=== PATIENT | male | born 1940 | race Caucasian/White ===

== ENCOUNTER 2018-09-14 18:54 | Inpatient (IN) ==
[2018-09-14 20:01] LABS: BASO# 0.07 X1000 (0.0-0.2); BASO% 0.5 % (0.0-0.8); EOS% 0.7 % (0.0-10.0); HEMATOCRIT 28.8 % (42.0-52.0); HEMOGLOBIN 9.7 g/dL (14.0-18.0); IMM GRAN# 0.27 X1000 (0.0-0.04); IMM GRAN% 1.9 % (0.0-0.5); LYMPH# 1.15 X1000 (1.2-3.4); MCH 30.8 PG (27-31); MCHC 33.7 g/dL (33-37); MCV 91.4 FL (81-99); MONO# 1.25 X1000 (0.11-0.59); MONO% 8.7 % (1.7-9.3); MPV 9.7 FL (7.4-10.4); NEUT# 11.52 X1000 (1.4-6.5); NEUT% 80.2 % (42.2-75.2); PLT 232 X1000 (130-400); RBC 3.15 XMIL (4.7-6.1); RDW 13.1 % (11.5-14.5); WBC 14.36 X1000 (4.8-10.8)
[2018-09-14] MEDS: HUMULIN R (PARKWAY) IV ONE ×3 (20:15→21:10)
[2018-09-14 20:33] LABS: INR 0.97; PROTIME 13.4 Seconds (11.0-16.0)
[2018-09-14 20:35] LABS: ALBUMIN 3.4 g/dL (3.5-5.0); CALCIUM 8.3 mg/dL (8.8-10.2); CREATININE 3.4 mg/dL (0.7-1.2); TOTAL BILIRUBIN 0.3 mg/dL (0.20-1.00); TOTAL PROTEIN 6.4 g/dL (6.3-8.3)
[2018-09-14 20:36] LABS: POTASSIUM 7.1 mmol/L (3.5-5.1)
[2018-09-14] MEDS ORDERED: SODIUM BICARBONATE 8.4% IV PUSH ONE (20:56)
[2018-09-14] MEDS ORDERED: ALBUTEROL NEB INH ONE (20:58)
--- NOTE | 2018-09-14 22:15 | Diag Imaging Result Doc PS360 ---
EXAM: CT ABDOMEN/PELVIS W/O CONTRAST HISTORY: abdominal pain TECHNIQUE: CT abdomen and pelvis without contrast COMPARISON: 03/03/2014 FINDINGS: The gallbladder is contracted. Questionable tiny stones within it. Normal noncontrasted liver. Spleen is small containing scattered granuloma. Normal pancreas and adrenal glands. There is bilateral renal cortical thinning with scattered renal cysts. Hyperdense right upper pole renal lesions present prior study. Calcified nodule along the medial left kidney is unchanged. No renal stones. No hydronephrosis. No aortic aneurysm. Moderate atherosclerosis. Normal appendix. No abscess. No bowel obstruction. There are scattered colonic diverticula. No ascites. The urinary bladder is moderately distended and is normal. Normal prostate. IMPRESSION: 1.Scattered renal cysts with bilateral cortical thinning and scarring. Hyperdense right renal lesion may represent a hemorrhagic cyst. 2.Contracted gallbladder which may contain several tiny stones 3.Atherosclerosis 4.Colonic diverticulosis This exam was performed using automated exposure control, adjustment of mA or kV according to patient size, and/or use of iterative reconstruction technique. Electronically signed by Homer Giles 09/14/2018 10:12 PM
[2018-09-14] MEDS ORDERED: KAYEXALATE PO ONE (22:17)
--- NOTE | 2018-09-14 22:46 | PROVIDER DOCUMENTATION ---
This chart was entered by Kesha Maki Scribe, acting as scribe for Magdy Judd MD. HPI-Abdominal Pain/GI Problem - General Chief Complaint: Rectal Bleeding Stated Complaint: BLEEDING Time Seen by Provider: 09/14/18 19:36 Source: patient Allergies/Adverse Reactions: Patient Allergies Allergy/AdvReac Type Severity Reaction Status Date / Time No Known Allergies Allergy Verified 12/31/13 22:27 Home Medications: Home Medication List Medication Instructions Recorded Confirmed Last Taken Type Aspirin 325 mg PO DAILY 12/18/13 03/02/14 03/02/14 07:30 History Carvedilol 12.5 mg PO BID 12/18/13 03/02/14 03/02/14 07:30 History Cyanocobalamin/FA/Pyridoxine 1 each PO BID 12/18/13 03/02/14 03/02/14 07:30 History [Foltx] Diltiazem HCl [Diltiazem 24Hr Cd] 180 mg PO BID 12/18/13 03/02/14 03/02/14 07:30 History Clonidine [Catapres] 0.1 mg PO BID 12/31/13 03/02/14 03/02/14 07:30 History Amlodipine Besylate 10 mg PO DAILY 09/14/18 09/14/18 Unknown History Insulin Lispro [Humalog] 150 unit PERCUTANEOUS DAILY 09/14/18 09/14/18 Unknown History - History of Present Illness-ABD Nature of Presenting Problems: pt is a 77 yr old male with history of chronic renal insufficency,diabetes, and GI complaints, currently being evaluated by local GI doctor, who presents with complaint of rectal bleeding pt reports red blood mixed with stool, pt denies nausea, vomiting or diarrhea, no rectal pain Pain Radiation: reports: no radiation Quality of Pain: reports: none Onset/Duration: reports: this afternoon (1400) Timing: reports: still present Activities at Onset: reports: other (bowel movement) Exposure to sick contacts?: No Modifying Factors: improves with: nothing Associated Symptoms: reports: fatigue, weakness. denies: chest pain, constipation, diarrhea, nausea, vomiting Last BM: this afternoon Dark Stools Present?: reports: tarry, bright red blood Rectal Bleeding: reports: blood mixed with stool Rectal Pain: reports: none Emesis Description: reports: none Bruising or Bleeding Gums?: No Similar Symptoms Previously?: No Recently seen or treated by another doctor?: No Review of Systems - Adult - REVIEW OF SYSTEMS - ADULT Constitutional: reports: fatique. denies: fever Eyes: reports: no symptoms reported Ears, Nose, Mouth & Throat: reports: no symptoms reported Cardiovascular: denies: chest pain, palpitations, syncope Respiratory: denies: cough, dyspnea on exertion, shortness of breath Gastrointestinal: reports: poor appetite, rectal bleeding. denies: abdominal pain, diarrhea, nausea, vomiting Genitourinary: denies: dysuria, frequency, flank pain Musculoskeletal: denies: back pain, neck pain Integumentary: reports: no symptoms reported Neurological: denies: dizziness/vertigo, headache/migraines Psychiatric: reports: no symptoms reported Endocrine: reports: no symptoms reported Hematologic/Lymphatic: reports: no symptoms reported Allergic/Immunologic: reports: no symptoms reported All Other Systems: Reviewed and Negative Past History - Adult - PAST MEDICAL HISTORY-ADULT Review of Records: reports: Old Records Reviewed, Nursing Assessment Review, Medications Reviewed, Social history reviewed & non-contributory. Major Childhood Illnesses: reports: denies history Cardiovascular: reports: HTN Respiratory: reports: denies history Gastrointestinal: reports: denies history Obstetrical/Gynecological: reports: denies history Genitourinary: reports: denies history Musculoskeletal: reports: denies history Neurological: reports: denies history Endocrine/Immune: reports: Diabetes Other Conditions: reports: denies history - PRIOR SURGERIES/PROCEDURES Surgical/Procedure History: reports: other (Right ear/ Rupture messentary) - IMMUNIZATION STATUS Childhood Immunizations: See Nurse Assessment Flu Vaccine: See Nurse Assessment - FAMILY HISTORY Family History: reviewed, not pertinent - SOCIAL HISTORY Smoking: denies Substance Use: denies Living Situation: family Physical Exam-General - PHYSICAL EXAM-ADULT Initial Vital Signs Reviewed: Yes - CONSTITUTIONAL General Appearance: alert, no apparent distress - EYES Eyes: PERRL/EOMI - HEAD, EARS, NOSE, MOUTH & THROAT HENMT: normocephalic/atraumatic, moist mucous membranes, hearing deficit - NECK Neck: non-tender, full range of motion, supple, normal inspection - RESPIRATORY Respiratory: chest non-tender, lungs clear, normal breath sounds - CARDIOVASCULAR Cardiovascular: normal peripheral pulses, regular rate, rhythm, no edema - GASTROINTESTINAL (ABDOMEN) Abdominal Exam: normal bowel sounds, non tender, soft - GENITOURINARY Rectal Exam: normal rectal tone, hemorrhoids (external), other (bright red blood noted around rectum). negative: black stool, blood streaked stool, tenderness - LYMPHATIC Lymphatic: no adenopathy - MUSCULOSKELETAL Back Exam: normal inspection Extremity: normal range of motion, non-tender, normal gait, normal inspection - SKIN Integumentary: normal color, normal turgor, warm/dry - NEUROLOGIC Neurologic: grossly normal, no motor/sensory deficits - PSYCHIATRIC Psych/Mental Status: normal mood/affect, normal thought content, normal thought process, oriented x 3 Progress - PLAN OF CARE/RESULTS Progress/Plan/Lab Results: Vital Signs - 8 hr 09/14/18 19:23 Temperature 98 F Pulse Rate 76 Respiratory Rate 18 Blood Pressure 146/68 O2 Sat by Pulse Oximetry 99 Orders Category Date Time Status FSBS [Finger Stick Blood Sugar (ED)] DIRECTED Care 09/14/18 19:32 Active CBC WITH DIFF [HEME] Stat Lab 09/14/18 19:31 Ordered COMPREHENSIVE METABOLIC PANEL [CHEM] Stat Lab 09/14/18 19:33 Ordered OCCULT BLOOD SCREEN STOOL PL Stat Lab 09/14/18 19:36 Uncollected PROTIME WITH INR [COAG] Stat Lab 09/14/18 19:33 Ordered Result Diagrams: 09/14/18 19:35 09/14/18 19:35 - EKG 1 Time of EKG reading by physician:: 21:24 EKG Read and Signed by:: Magdy Judd EKG Interpretation (*Must complete 3 of following elements*): Abnormal (peaked t waves) Rate: 80 Rhythm: atrial sensed ventricular paced rhythm - CONSULTS/PCP/HOSPITALIST Notification #1 *Consult/PCP/Hospitalist*: Dr. Danielson, hospitalist Time Discussed: 22:45 Consult Disposition: Admit Departure - Departure Date of Disposition Decision: 09/14/18 Time of Disposition Decision: 22:47 DIAGNOSIS: Hyperkalemia Disposition: ADMITTED INPATIENT 09 Certified Medical Emergency: Emergent Condition: Stable Referrals and Follow-Ups: Sheldon Tristan MD [Primary Care Provider] - - Critical Care Note This patient required my direct & personal management of CC.: No Attestation - Physician/ DEEPIKA Attestation Patient care was provided by Advanced Practice Provider:: No The physician spent face to face time with patient:: Yes Advanced Practice Provider documentation review:: Supervising physician onsite and consulted in the evaluation and care of this patient. The physician did have a face to face encounter with the patient. This chart was documented by the indicated scribe, (Kesha Maki Scribe) and accurately reflects the services I performed and decisions made by me, Magdy Judd MD, as attested by the provider's signature.
[2018-09-14] MEDS ORDERED: NS 1,000 ML IV ONE (22:47)
[2018-09-14] MEDS: ALBUTEROL NEB INH SCH (23:00)
[2018-09-14] MEDS ORDERED: KAYEXALATE PO SCH (23:00)
[2018-09-14] MEDS ORDERED: NS 2,000 ML ONE (23:12)
[2018-09-14 23:33] LABS: CALCIUM 7.9 mg/dL (8.8-10.2); CREATININE 3.1 mg/dL (0.7-1.2)
[2018-09-14 23:36] LABS: POTASSIUM 6.8 mmol/L (3.5-5.1)
[2018-09-14] MEDS ORDERED: PHENERGAN IV ONE (23:44)
[2018-09-14] MEDS ORDERED: SODIUM CHLORIDE 0.9% INJ ONE (23:44)
[2018-09-15] MEDS ORDERED: SODIUM CHLORIDE 0.9% INJ ONE (01:34)
[2018-09-15] MEDS ORDERED: PROTONIX IV ONE (01:34)
[2018-09-15] MEDS ORDERED: CALCIUM CHLORIDE 1 GM in NS 100 ML IV ONE (01:44)
[2018-09-15 01:45] LABS: BASO# 0.04 X1000 (0.0-0.2); BASO% 0.2 % (0.0-0.8); EOS# 0.02 X1000 (0.0-0.7); EOS% 0.1 % (0.0-10.0); HEMATOCRIT 20.9 % (42.0-52.0); IMM GRAN# 0.24 X1000 (0.0-0.04); IMM GRAN% 1.5 % (0.0-0.5); LYMPH# 1.25 X1000 (1.2-3.4); LYMPH% 7.7 % (20.5-51.1); MCH 30.8 PG (27-31); MCHC 33.5 g/dL (33-37); MCV 92.1 FL (81-99); MONO# 1.31 X1000 (0.11-0.59); MONO% 8.1 % (1.7-9.3); NEUT# 13.32 X1000 (1.4-6.5); NEUT% 82.4 % (42.2-75.2); PLT 207 X1000 (130-400); RBC 2.27 XMIL (4.7-6.1); WBC 16.18 X1000 (4.8-10.8)
[2018-09-15 02:01] LABS: CALCIUM 7.5 mg/dL (8.8-10.2); CREATININE 3.5 mg/dL (0.7-1.2)
[2018-09-15 02:04] LABS: POTASSIUM 6.7 mmol/L (3.5-5.1)
[2018-09-15] MEDS ORDERED: NS 100 ML ONE (02:13)
[2018-09-15 02:28] LABS: BILIRUBIN URINE NEGATIVE (NEGATIVE); BLOOD URINE NEGATIVE (NEGATIVE); CLARITY SL. CLOUDY (CLEAR); COLOR YELLOW; GLUCOSE URINE NEGATIVE (NEGATIVE); KETONE URINE NEGATIVE (NEGATIVE); LEUKOCYTES URINE TRACE (NEGATIVE); NITRITE URINE NEGATIVE (NEGATIVE); PROTEIN URINE 1+(30 mg/dL) mg/dL (NEGATIVE); UROBILINOGEN URINE NORMAL
[2018-09-15 02:34] LABS: URINE BACTERIA 2+ /HFP; URINE EPITHELIAL CELLS <10 /HPF (<10); URINE SOURCE CATH; URINE WBC NS /HPF (<10)
[2018-09-15] MEDS: ALBUTEROL NEB INH SCH (03:50)
[2018-09-15] MEDS ORDERED: ZOFRAN IV PRN (04:38)
[2018-09-15] MEDS ORDERED: MORPHINE IV PRN (04:43)
[2018-09-15] MEDS ORDERED: OFIRMEV 1000 MG/ISOTONIC SOLN 1,000 MG/100 ML BOTTLE IV PRN (04:43)
[2018-09-15 05:01] LABS: BASO# 0.04 X1000 (0.0-0.2); BASO% 0.3 % (0.0-0.8); HEMATOCRIT 21.8 % (42.0-52.0); HEMOGLOBIN 7.1 g/dL (14.0-18.0); IMM GRAN# 0.21 X1000 (0.0-0.04); IMM GRAN% 1.4 % (0.0-0.5); LYMPH# 0.74 X1000 (1.2-3.4); LYMPH% 4.8 % (20.5-51.1); MCH 30.2 PG (27-31); MCHC 32.6 g/dL (33-37); MCV 92.8 FL (81-99); MONO# 0.82 X1000 (0.11-0.59); MONO% 5.4 % (1.7-9.3); MPV 9.7 FL (7.4-10.4); NEUT# 13.46 X1000 (1.4-6.5); NEUT% 88.1 % (42.2-75.2); PLT 214 X1000 (130-400); RBC 2.35 XMIL (4.7-6.1); RDW 13.2 % (11.5-14.5); WBC 15.27 X1000 (4.8-10.8)
[2018-09-15 05:06] LABS: INR 1.1; PROTIME 15.1 Seconds (11.0-16.0)
[2018-09-15] MEDS: PROTONIX 80 MG in NS 80 ML IV SCH ×2 (05:42→15:55)
[2018-09-15] MEDS: NS 1,000 ML IV SCH ×2 (05:43→15:54)
[2018-09-15 05:56] LABS: ALBUMIN 2.7 g/dL (3.5-5.0); CREATININE 3.1 mg/dL (0.7-1.2); MAGNESIUM 1.4 mg/dL (1.5-2.7); PHOSPHORUS 3.4 mg/dL (2.7-4.5)
[2018-09-15 05:57] LABS: POTASSIUM 6.9 mmol/L (3.5-5.1)
[2018-09-15 06:04] LABS: LYMPHS 6 % (21-51); MONO 5 % (1-9); SEGS 89 % (42-75)
[2018-09-15] MEDS ORDERED: HUMULIN R IV ONE ×2 (06:09→11:00)
[2018-09-15] MEDS ORDERED: ALBUTEROL 0.5% INH CONC FOR HYPERKALEMIA INH ONE (06:09)
[2018-09-15] MEDS ORDERED: SORBITOL PO ONE ×2 (06:19→10:00)
[2018-09-15 06:32] LABS: UR CREAT RANDOM 102.1 mg/dL (14-26); UR PROT RANDOM 55.8 mg/dL
--- NOTE | 2018-09-15 06:38 | Diag Imaging Result Doc PS360 ---
EXAM: CHEST-PORTABLE HISTORY: cough,fatigue,weakness TECHNIQUE: Portable chest single view COMPARISON: 12/18/2013 FINDINGS: The lungs are well expanded. The heart is not enlarged. There is a left-sided pacemaker. The vessels are not distended. There are no infiltrates. No effusion identified. IMPRESSION: No pneumonia. Electronically signed by Homer Giles 09/15/2018 6:36 AM
[2018-09-15] MEDS ORDERED: HUMALOG SUBQ SCH ×2 (07:00→21:00)
--- NOTE | 2018-09-15 07:25 | EKG Report ---
Test Performed on : 09/15/2018 04:01:47 AM Test Reason : Hyperkalemia Blood Pressure : / mmHG Vent. Rate : 097 BPM Atrial Rate : 096 BPM P-R Int : 000 ms QRS Dur : 138 ms QT Int : 360 ms P-R-T Axes : 000 -70 096 degrees QTc Int : 457 ms Ventricular-paced rhythm Abnormal ECG When compared with ECG of 19-DEC-2013 06:23, Electronic ventricular pacemaker has replaced Sinus rhythm. Vent. rate has increased BY 34 BPM Unconfirmed Result
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
--- NOTE | 2018-09-15 07:56 | NEPHROLOGY CONSULTATION ---
DATE: 09/15/2018 REQUESTING PHYSICIAN: Dr. Danielson. REASON FOR CONSULTATION: Hyperkalemia and acute kidney injury. HISTORY OF PRESENT ILLNESS: Mr. Cuevas is a 77-year-old, white male with a history of a pacemaker placement, diabetes, and hypertension. He has known chronic kidney disease and follows with Dr. Vivar in [place] ever since his pacemaker was placed approximately 5 years ago. He states his kidney disease has been attributed to diabetes and he has struggled with hyperkalemia since that time. She has given him reading material about dialysis but has not implied that dialysis was an imminent need. He states he was in his usual health until about 2 or 3 weeks ago when he started having pain and swelling in the right knee. He saw Dr. Jarrell in clinic and was given oral medication. He cannot recollect the name of this medication but he took it regularly for management of his pain. He states he was in his usual health until about a week ago when he started having diarrhea, some dyspepsia, and decreased p.o. intake. He tried antacids without any benefit. Ultimately, he went to see Dr. Wasserman because he was having bowel movements that were looser than normal. Dr. Wasserman prescribed GoLYTELY. He took this and had good results. However, in the 24 hours prior to admission, he continued to have loose bowel movements and ultimately noticed the water was stained with blood. He sought attention with Dr. Tristan who directed him to the emergency room. His initial evaluation found potassium of 7.1 with creatinine of 3.4. Baseline creatinine approximately 2.5 to 3. He was treated for his hyperkalemia with only modest improvement, 6.9 this morning. He is receiving blood currently and he states overall, he feels better. He does have some mild abdominal discomfort. No vomiting. PAST MEDICAL HISTORY: As above. HOME MEDICATIONS: Include amlodipine, diltiazem, multivitamin, clonidine, carvedilol, aspirin. ALLERGIES: None. SOCIAL HISTORY: He is and lives with his . No alcohol or tobacco. FAMILY HISTORY: Noncontributory otherwise. REVIEW OF SYSTEMS: Noncontributory otherwise. PHYSICAL EXAMINATION: Vital Signs: Blood pressure 151/78, heart rate 106, respirations 27, afebrile. General: No acute distress. Skin: Pale and dry. HEENT: Conjunctivae are pink. Pupils are equal. Neck: Neck veins are not distended. Heart: PMI is nondisplaced. Regular rate and rhythm without murmurs, rubs, or gallops. Lungs: Have equal excursion and equal breath sounds. No crackles or wheezes. Abdomen: Soft. Mildly tender in the periumbilical region. No guarding or rebound. Bowel sounds are present. No organomegaly. Extremities: Have no edema, clubbing, or cyanosis. IMPRESSION: Acute kidney injury overlying chronic kidney disease, complicated by acidosis and hyperkalemia, likely secondary to his gastrointestinal bleeding. 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 No obstruction. I will focus on treating his hyperkalemia and metabolic acidosis as appropriate. His renal function is not far from baseline. He does not meet criteria for dialysis unless we are unable to manage his potassium. cc: Tristan Singer MD
[2018-09-15] MEDS: ALBUTEROL 0.5% INH CONC FOR HYPERKALEMIA INH SCH ×3 (09:23→15:23)
[2018-09-15] MEDS ORDERED: MAGNESIUM SULFATE 2 GM/S.W.I. 2 GM/50 ML IVPB IV ONE (09:32)
[2018-09-15 09:53] LABS: HEMOGLOBIN A1C 5.6 % (4.8-6.0)
[2018-09-15] MEDS: KAYEXALATE PO SCH ×2 (10:07→21:50)
[2018-09-15] MEDS: BASAGLAR SUBQ SCH (10:37)
[2018-09-15] MEDS: HUMALOG SUBQ SCH ×4 (10:39→20:28)
[2018-09-15] MEDS ORDERED: INSULIN PEN NEEDLES ONE (10:41)
[2018-09-15] MEDS ORDERED: D50W SYRINGE IV ONE (11:00)
[2018-09-15 11:15] LABS: HEMATOCRIT 29.3 % (42.0-52.0); HEMOGLOBIN 9.7 g/dL (14.0-18.0)
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
--- NOTE | 2018-09-15 11:56 | EKG Report ---
Test Performed on : 09/14/2018 9:23:49 PM Test Reason : ER Blood Pressure : / mmHG Vent. Rate : 080 BPM Atrial Rate : 081 BPM P-R Int : 172 ms QRS Dur : 142 ms QT Int : 374 ms P-R-T Axes : 027 -71 095 degrees QTc Int : 431 ms Atrial-sensed ventricular-paced rhythm Abnormal ECG When compared with ECG of 14-SEP-2018 21:20, (Unconfirmed) Previous ECG has undetermined rhythm, needs review Unconfirmed Result
[2018-09-15] MEDS ORDERED: FENTANYL ONE (13:52)
[2018-09-15] MEDS ORDERED: CALCIUM CHLORIDE SYRINGE ONE (14:06)
[2018-09-15] MEDS ORDERED: DIPRIVAN 1% ONE ×3 (14:08→14:12)
[2018-09-15] MEDS ORDERED: EPINEPHRINE SYRINGE ONE (14:13)
--- NOTE | 2018-09-15 15:28 | OPERATIVE NOTE ---
PROCEDURE DATE: 09/15/2018 PROCEDURE: 1. Esophagogastroduodenoscopy (EGD). 2. Hemorrhage control. 3. Biopsy. MEDICATION USED: MAC as per Anesthesia. PREOPERATIVE DIAGNOSES: 1. Acute gastrointestinal (GI) bleed. 2. Anemia secondary to gastrointestinal (GI) bleed. POSTOPERATIVE DIAGNOSES: 1. Duodenal ulcer with visible vessel treated. 2. Multiple duodenal ulcers. 3. Gastritis. HISTORY: This is a 77-year-old gentleman admitted to hospital with GI bleed and was found to be severely anemic. Endoscopy was done for diagnostic as well as therapeutic purposes. PROCEDURE IN DETAIL: Informed consent was obtained from the patient. The procedure, risks, benefits, alternatives were explained in layman's terms. He understood. All of his pertinent questions were answered. Patient was brought to the endoscopy unit and was premedicated as per Anesthesia. After adequate sedation, while he was lying in the left lateral position, the gastroscope was introduced into the posterior pharynx and advanced under direct vision into the esophagus. Esophagus in its entire length appeared to be normal. No esophagitis, webs, rings, varices were seen. Scope was then passed through the esophagus into the stomach. Stomach was examined both in the straight and retroflexed views, which revealed gastritis. There were hyperemic patches noted throughout the stomach body and the antrum. Multiple biopsies were obtained. No evidence of active bleeding or stigmata of recent bleed seen in the stomach. The scope was passed through the normal pylorus into the duodenal bulb, where multiple ulcers were seen ranging from 8 mm to about 2 cm in size. One of the ulcers is lying on the anterior aspect of the duodenal bulb that showed a visible vessel which was pulsatile. The scope was then passed through the 2nd portion of duodenum where multiple superficial ulcers were seen. The scope was withdrawn back into the duodenal bulb, where using a sclerotherapy needle, I injected 1:10,000 epinephrine in aliquots of 0.5 mL. A total of 4 mL were injected around the visible vessel. Then, I used a heater probe and applied 15 J of current multiple times, completely obliterating the vessel. There was a small amount of oozing noted. At this point, I used Endoclips and applied 2 clips in the area without any complication. No further bleeding was noted. The scope was then removed. Patient tolerated the procedure well. No complications noted. Patient was then transferred to the recovery area in a stable condition. IMPRESSION: 1. Duodenal ulcer with pulsatile visible vessel treated. 2. Multiple duodenal ulcers both in the bulb and the 2nd portion of the duodenum, biopsied. 3. Gastritis, biopsied. RECOMMENDATION: Recheck hemoglobin and hematocrit, transfuse if necessary. In the meantime, continue proton pump inhibitor IV, and depending on his progress. Follow up the biopsy report and depending on the findings, further plans will be made. cc: Óscar Wasserman MD
[2018-09-15 15:52] LABS: HEMATOCRIT 29.3 % (42.0-52.0); HEMOGLOBIN 9.6 g/dL (14.0-18.0)
[2018-09-15 21:35] LABS: HEMATOCRIT 25.4 % (42.0-52.0); HEMOGLOBIN 8.4 g/dL (14.0-18.0)
[2018-09-16 01:42] LABS: HEMATOCRIT 23.8 % (42.0-52.0); HEMOGLOBIN 8.1 g/dL (14.0-18.0)
[2018-09-16] MEDS: PROTONIX 80 MG in NS 80 ML IV SCH ×3 (02:01→21:43)
[2018-09-16 05:24] LABS: MAGNESIUM 1.8 mg/dL (1.5-2.7)
[2018-09-16 05:35] LABS: BASO# 0.02 X1000 (0.0-0.2); BASO% 0.1 % (0.0-0.8); EOS# 0.06 X1000 (0.0-0.7); EOS% 0.4 % (0.0-10.0); HEMATOCRIT 24.7 % (42.0-52.0); HEMOGLOBIN 8.2 g/dL (14.0-18.0); IMM GRAN# 0.11 X1000 (0.0-0.04); IMM GRAN% 0.8 % (0.0-0.5); LYMPH# 1.22 X1000 (1.2-3.4); LYMPH% 8.4 % (20.5-51.1); MCHC 33.2 g/dL (33-37); MCV 90.5 FL (81-99); MONO# 1.41 X1000 (0.11-0.59); MONO% 9.7 % (1.7-9.3); MPV 10.3 FL (7.4-10.4); NEUT# 11.71 X1000 (1.4-6.5); NEUT% 80.6 % (42.2-75.2); PLT 173 X1000 (130-400); RBC 2.73 XMIL (4.7-6.1); RDW 14.6 % (11.5-14.5); WBC 14.53 X1000 (4.8-10.8)
[2018-09-16 05:40] LABS: FERRITIN 223 ng/mL (30-400)
[2018-09-16 05:53] LABS: CALCIUM 7.9 mg/dL (8.8-10.2); CREATININE 3.3 mg/dL (0.7-1.2)
[2018-09-16 05:57] LABS: POTASSIUM 4.6 mmol/L (3.5-5.1)
[2018-09-16] MEDS: HUMALOG SUBQ SCH ×3 (06:04→16:18)
[2018-09-16] MEDS: FOLIC ACID PO SCH (08:17)
[2018-09-16] MEDS: BASAGLAR SUBQ SCH (08:17)
[2018-09-16] MEDS: COREG PO SCH ×2 (08:17→21:40)
[2018-09-16] MEDS: ASPIRIN EC PO SCH (08:17)
[2018-09-16] MEDS: CALTRATE 600 PO SCH (08:17)
--- NOTE | 2018-09-16 09:19 | PROGRESS NOTE ---
DATE: 09/16/2018 SUBJECTIVE: Patient reports feeling fine. As per nursing staff, there has not been more signs of GI bleeding like melena or hematemesis. The patient denies any complaints at this time. OBJECTIVE: Vital Signs: Temperature 98.2 degrees, heart rate 94, respiratory 15, blood pressure 160/69, and O2 saturation 98% on room air. General Examination: This is a 77-year-old male lying in bed in no acute distress. HEENT: Head is normocephalic, atraumatic. Neck: No JVD noted. No carotid bruits. No lymphadenopathy. No thyromegaly. Cardiovascular: S1, S2 heard. No murmurs, gallops, or rubs. Regular rate and rhythm. Respiratory: Clear bilaterally to auscultation. No work of breathing or using accessory muscles. Abdomen: A little bit distended. Soft. Mild tenderness to palpation in the periumbilical area. The patient has positive bowel movements. No signs of peritoneal irritation. Extremities: No clubbing, cyanosis, or edema. Peripheral pulses present in both legs. Neurological: Patient alert and oriented x3. Moves all 4 extremities. LABORATORY DATA: White cell count 14.53, hemoglobin 8.2, hematocrit 24.7, and platelets 173,000. BMP shows potassium 4.6, creatinine 3.3, and hemoglobin A1c is 5.6. ASSESSMENT AND PLAN: 1. Gastrointestinal bleeding secondary to duodenal ulcers. That is a finding that we have seen on the EGD performed by Dr. Wasserman. At this time, we are going to continue with Protonix drip. The patient has been started on clear liquids. We are going to add sucralfate to his current treatment. There has not been signs of bleeding anymore. I think patient is hemodynamically stable, and he can be transferred to a regular floor today. 2. Acute on chronic kidney disease. Creatinine is stable around 3.0. We will continue to monitor BMP. 3. Hyperkalemia resolved. 4. Hypertension. Blood pressure is under control. We will continue with same management. 5. Diabetes mellitus type 2. Patient uses usually a pump but at this point, we are using basal insulin and sliding scale insulin as well. 6. Deep vein thrombosis prophylaxis. Patient is on SCD's. 7. Disposition: Patient is going to be transferred out to the unit today. We will monitor this patient closely. I think within the next 24 to 48 hours patient can be discharged if no more signs of bleeding. cc: Herb Pineda MD
[2018-09-16] MEDS: CARAFATE LIQUID PO SCH ×2 (13:09→21:40)
--- NOTE | 2018-09-16 16:01 | GASTROENTEROLOGY PROGRESS NOTE ---
DATE: 09/16/2018 SUBJECTIVE: The patient denies any further bleeding. He has not had a bowel movement since his procedure yesterday. He had an EGD that showed a duodenal ulcer with visible vessel treated and also multiple duodenal ulcers and gastritis. He is currently on IV Protonix drip. OBJECTIVE: Vital Signs: Temperature 98.2 degrees, pulse 88, respirations 14, blood pressure 139/53. General: The patient is awake, alert, no acute distress. LABORATORY: Hematology: WBC 14.53, hemoglobin 8.2, hematocrit 24.7, MCV 90.5, platelet 173,000. Chemistry: Sodium 140, potassium 4.6, chloride 112, CO2 of 12, BUN 107, creatinine 3.3, glucose 167. ASSESSMENT AND PLAN: 1. Recent gastrointestinal bleeding with findings of duodenal ulcer with visible vessel treated. Continue proton pump inhibitor. Continue Protonix drip for now. We will transfer over to oral after 48 hours. Continue Carafate. He is tolerating clear liquid diet. We will most likely advanced to a full liquid diet for supper. Continue to follow for further active bleeding. Monitor hemoglobin and hematocrit. 2. Acute/chronic kidney disease. 3. Hyperkalemia, with now normal potassium. 4. Diabetes. 5. Hypertension. PLAN: The patient will be transferred to medical floor today. We will continue IV PPI drip for 48 hours and then transition to p.o.. Advance diet to full liquids this afternoon if tolerated. Continue to monitor hemoglobin and hematocrit and monitor for further signs of active bleeding. I have discussed this case with Dr. Wasserman. Dictated by ROBERT Ordonez for Óscar Wasserman MD cc: ROBERT Swanson MD
--- NOTE | 2018-09-16 19:48 | NEPHROLOGY PROGRESS NOTE ---
DATE: 09/16/2018 SUBJECTIVE: Patient is waiting to go to a regular room. He has not had any type of gastric procedure. OBJECTIVE: Vital Signs: Temperature 98.2 degrees, pulse 88, respiratory rate 14, blood pressure 139/53. Intake 1.5 L, output 1.2 L. General: This is an elderly gentleman sitting up in bed. He is awake and alert. He is in no acute distress. HEENT: Normocephalic, atraumatic. LIVAN. Oral mucosal is moist. Neck: Supple without JVD. Cardiovascular: Regular rate and rhythm. No murmur or gallop. Pulmonary: Clear bilaterally. He has equal excursion. Abdomen: Soft with positive bowel sounds. Genitourinary: Not inspected. He has a Griffiths with clear yellow urine. Integumentary: Skin is warm and dry. Extremities: No clubbing, cyanosis or edema. LABORATORY DATA: Creatinine 3.3, potassium 4.6, CO2 12. ASSESSMENT AND PLAN: 1. Acute kidney injury overlying chronic kidney disease with acidosis and hyperkalemia felt secondary to his gastrointestinal bleed. Potassium has improved as well as his overall CO2. Potassium today is 4.6. His CO2 today is 12, stable from yesterday. UOP has increased. 2. Anemia, melena, hyperkalemia secondary to gastrointestinal bleed. 3. Blood pressure controlled. 4. Fluid volume not overloaded. Dictated by ROBERT Rucker for Tristan Singer MD Face to face encounter, data reviewed, discussed with Cindy Wright on 09/16/18. I agree with the above assessment and plan of care. cc: Tristan Singer MD [facility]
[2018-09-17] MEDS: CARAFATE LIQUID PO SCH ×4 (02:02→22:01)
[2018-09-17] MEDS: HUMALOG SUBQ SCH ×5 (02:34→22:02)
[2018-09-17] MEDS: PROTONIX 80 MG in NS 80 ML IV SCH ×2 (04:43→06:55)
[2018-09-17 06:36] LABS: BASO# 0.03 X1000 (0.0-0.2); BASO% 0.3 % (0.0-0.8); EOS# 0.54 X1000 (0.0-0.7); EOS% 4.5 % (0.0-10.0); HEMATOCRIT 24.9 % (42.0-52.0); HEMOGLOBIN 8.2 g/dL (14.0-18.0); IMM GRAN# 0.07 X1000 (0.0-0.04); IMM GRAN% 0.6 % (0.0-0.5); LYMPH# 0.83 X1000 (1.2-3.4); MCHC 32.9 g/dL (33-37); MCV 91.2 FL (81-99); MONO# 1.06 X1000 (0.11-0.59); MONO% 8.9 % (1.7-9.3); MPV 10.4 FL (7.4-10.4); NEUT# 9.38 X1000 (1.4-6.5); NEUT% 78.7 % (42.2-75.2); PLT 196 X1000 (130-400); RBC 2.73 XMIL (4.7-6.1); RDW 14.3 % (11.5-14.5); WBC 11.91 X1000 (4.8-10.8)
[2018-09-17 07:27] LABS: CALCIUM 8.4 mg/dL (8.8-10.2); POTASSIUM 4.6 mmol/L (3.5-5.1)
[2018-09-17] MEDS: FOLIC ACID PO SCH (08:35)
[2018-09-17] MEDS: COREG PO SCH ×2 (08:35→22:01)
[2018-09-17] MEDS: ROCALTROL PO SCH (08:35)
[2018-09-17] MEDS: CALTRATE 600 PO SCH (08:35)
[2018-09-17] MEDS: BASAGLAR SUBQ SCH (08:36)
[2018-09-17] MEDS: ASPIRIN EC PO SCH (08:36)
--- NOTE | 2018-09-17 14:41 | PROGRESS NOTE ---
DATE: 09/17/2018 SUBJECTIVE: Patient reports feeling fine. Reports no more signs of bleeding, GI bleeding like melena or hematemesis. He reports not being able to get up since he was admitted. OBJECTIVE: Vital Signs: Temperature 97.6, heart rate 68, respiratory rate 16, blood pressure 125/50. O2 sat 99% on room air. General: This is a 77-year-old male lying in bed, in no acute distress. Cardiovascular: S1, S2 heard. No murmurs, gallops or rubs. Regular rate and rhythm. Respiratory: Clear bilaterally to auscultation. No work of breathing or using accessory muscles. Abdomen: Soft, a little bit distended. Mild tenderness to palpation in the periumbilical area, but patient has bowel sounds that are present. No signs of peritoneal irritation. Extremities: No clubbing, cyanosis or edema. Peripheral pulses present in both legs. Neurologic: Patient alert and oriented x 3. Moves 4 extremities. LABORATORY DATA: Reviewed. ASSESSMENT AND PLAN: 1. Gastrointestinal bleeding secondary to duodenal ulcers. Clinically this patient is stable, not having any more signs of GI bleeding. At this point, as per Gastroenterology recommendation, we will continue with Protonix drip for one more day and tomorrow we will switch to p.o. If hemoglobin is stable, I think the patient will be able to be discharged. 2. Acute on chronic kidney disease. Hemoglobin continues to be around baseline. We will continue with the same management. 3. Hyperkalemia, resolved. 4. Hypertension. Blood pressure is under control. We will continue with the same medication. 5. Diabetes mellitus type 2. We will continue with sliding scale insulin and basal insulin as well. 6. DVT prophylaxis. Patient is on SCDs. 7. Disposition: I think after we switch to oral Protonix tomorrow, if hemoglobin is stable we will discharge this patient. cc: Herb Pineda MD
--- NOTE | 2018-09-17 18:59 | NEPHROLOGY PROGRESS NOTE ---
DATE: 09/17/2018 SUBJECTIVE: He states he is feeling better today. No nausea, vomiting, or shortness of breath. OBJECTIVE: Vital Signs: Blood pressure 134/57, heart rate 68, respirations 16, afebrile. Intake 1.5 L, output 4.3 L. General: No acute distress. Skin: Warm and dry. HEENT: Conjunctivae are pink. Neck: Neck veins are not distended. Heart: Regular. No gallops. Lungs: Equal. No crackles or wheezes. Abdomen: Soft, nontender. Bowel sounds present. Extremities: No edema, clubbing, or cyanosis. IMPRESSION: 1. Acute kidney injury. BUN and creatinine have improved today. Excellent urine output. Hyperkalemia is resolved. 2. Metabolic acidosis is improving, now with a normal anion gap. 3. He is responding well to therapy. No changes. Will follow. cc: Tristan Singer MD
--- NOTE | 2018-09-17 20:36 | GASTROENTEROLOGY PROGRESS NOTE ---
DATE: 09/17/2018 SUBJECTIVE: Patient states he is feeling better. He has had no reported active bleeding since his procedure. He had an EGD on 09/15/2018 that showed duodenal ulcer with visible vessel treated and multiple duodenal ulcers along with gastritis. The patient states he has not had a bowel movement since his procedure. OBJECTIVE: Vital Signs: Temperature 97.9, pulse 68, respirations 16, blood pressure 134/57. General: Patient is awake and alert, in no acute distress. LABORATORY: Hematology: WBC 11.91, hemoglobin 8.2, hematocrit 24.9, MCV 91.2, platelet 196,000. Chemistry: Sodium 143, potassium 4.6, chloride 114, CO2 19, BUN 83, creatinine 3.0, glucose 109. ASSESSMENT AND PLAN: 1. Recent gastrointestinal bleeding with finding of duodenal ulcers with visible vessel treated. Continue PPI, but we can change from Protonix drip to Prilosec 40 mg twice daily. He needs to continue PPI twice daily for a month and then he can go down to daily. Recommend he follow up with us in the office. We will follow on biopsy results. He will need a repeat EGD in 3 to 4 months to confirm healing of ulcers. Patient has not had a bowel movement since procedure. We will add Shanelle-Colace 2 tablets every night. 2. Acute/chronic kidney disease, seen by Nephrology. 3. Hyperkalemia, has resolved. 4. Diabetes, hypertension. PLAN: Continue PPI, but change to p.o. twice daily. Continue for one month and then decrease to daily. Repeat EGD in 3 to 4 months to confirm healing of ulcers. Further plans will be made according to his progress. Will advance his diet to a GI soft diet tonight. Hopefully, he can be discharged home in the next day or so. I have discussed this case with Dr. Wasserman. Dictated by ROBERT Ordonez for Óscar Wasserman MD cc: ROBERT Swanson MD
[2018-09-17] MEDS: PRILOSEC PO SCH (22:01)
[2018-09-17] MEDS: PERICOLACE PO SCH (22:02)
[2018-09-18] MEDS: CARAFATE LIQUID PO SCH ×4 (04:09→21:31)
[2018-09-18] MEDS ORDERED: PROTONIX IV SCH (04:43)
[2018-09-18] MEDS: HUMALOG SUBQ SCH ×4 (06:21→21:33)
[2018-09-18] MEDS: PRILOSEC PO SCH ×2 (06:22→21:29)
[2018-09-18 06:32] LABS: BASO# 0.02 X1000 (0.0-0.2); BASO% 0.2 % (0.0-0.8); EOS% 3.1 % (0.0-10.0); HEMOGLOBIN 8.2 g/dL (14.0-18.0); IMM GRAN# 0.06 X1000 (0.0-0.04); IMM GRAN% 0.6 % (0.0-0.5); LYMPH# 0.88 X1000 (1.2-3.4); LYMPH% 9.2 % (20.5-51.1); MCH 29.9 PG (27-31); MCHC 32.8 g/dL (33-37); MCV 91.2 FL (81-99); MONO# 1.06 X1000 (0.11-0.59); MONO% 11.1 % (1.7-9.3); MPV 10.3 FL (7.4-10.4); NEUT# 7.21 X1000 (1.4-6.5); NEUT% 75.8 % (42.2-75.2); PLT 196 X1000 (130-400); RBC 2.74 XMIL (4.7-6.1); RDW 13.6 % (11.5-14.5); WBC 9.53 X1000 (4.8-10.8)
[2018-09-18 06:52] LABS: CALCIUM 8.1 mg/dL (8.8-10.2); CREATININE 2.7 mg/dL (0.7-1.2)
[2018-09-18] MEDS: COREG PO SCH ×2 (08:49→21:31)
[2018-09-18] MEDS: FOLIC ACID PO SCH (08:49)
[2018-09-18] MEDS: CALTRATE 600 PO SCH (08:49)
[2018-09-18] MEDS: BASAGLAR SUBQ SCH (08:49)
[2018-09-18] MEDS: ASPIRIN EC PO SCH ×2 (08:49→08:51)
--- NOTE | 2018-09-18 09:52 | NEPHROLOGY PROGRESS NOTE ---
DATE: 09/18/2018 SUBJECTIVE: He is sitting up in the bed eating his breakfast. No complaints. No shortness of breath, nausea or vomiting. OBJECTIVE: Vital Signs: Blood pressure 147/64, heart rate 74, respiration 18, afebrile. Generally: No acute distress. Skin: Warm and dry. Conjunctivae are pink. Neck: Neck veins are not distended. Heart: Regular. No gallops. Lungs: Equal. No crackles or wheezes. Abdomen: Soft, nontender. Bowel sounds present. Extremities: No edema, clubbing or cyanosis. IMPRESSION AND PLAN: Acute kidney injury. Progressive improvement. Hyperkalemia is resolved. Bicarbonate is 20 today. I will remove his Griffiths catheter and continue to observe. If he is otherwise ready for discharge, then we can see him in the office in 1 to 2 weeks to follow up on his acute kidney injury. cc: Tristan Singer MD
--- NOTE | 2018-09-18 12:22 | GASTROENTEROLOGY PROGRESS NOTE ---
DATE: 09/18/2018 SUBJECTIVE: The patient is awake and alert. He has tolerated a GI soft diet. He reports a small bowel movement last night. EGD on 09/15/2018 showed duodenal ulcer with visible vessel treated and multiple duodenal ulcers and gastritis. OBJECTIVE: Vital signs: Temperature 98.6 degrees, pulse 74, respirations 18, blood pressure 147/64. General: The patient is awake, alert, no acute distress. LABORATORY: Hematology: WBC 9.53 hemoglobin 8.2, hematocrit 25.0, MCV 91.2, platelet 196. Chemistry: Sodium 141, potassium 4.0, chloride 113, CO2 of 20. BUN 65, creatinine 2.7, glucose 57. ASSESSMENT AND PLAN: 1. Recent gastrointestinal bleeding with findings of duodenal ulcers with visible vessel treated. Continue proton pump inhibitor. Continue Prilosec 40 mg oral twice daily. Once he is discharged, he needs to be on twice daily proton pump inhibitor for at least a month and then he can go down to daily. Will most likely repeat esophagogastroduodenoscopy in 3 to 4 months to confirm healing of his ulcers. We would also add empiric Colace 2 tablets every night; continue this regimen. 2. Acute on chronic kidney disease. Patient has been seen by Nephrology; they are following and plan to follow with him as an outpatient. 3. Hyperkalemia has resolved. 4. Diabetes and hypertension. Continue current management. As far as GI is concerned, he can be discharged when able. Per other medical problems, continue PPI twice daily for a month and then decrease to daily. Follow back in the office in 3 to 4 weeks. I have discussed this case with Dr. Wasserman. Dictated by ROBERT Ordonez for Óscar Wasserman MD cc: ROBERT Swanson MD
--- NOTE | 2018-09-18 13:59 | PROGRESS NOTE ---
DATE: 09/18/2018 SUBJECTIVE: Patient reports feeling fine. No more signs of melena or hematemesis. OBJECTIVE: Vital Signs: Temperature 98.7 degrees, heart rate 70, respiratory rate 20, blood pressure 137/63, O2 saturation 99% on room air. General: This is a 77-year-old, male, lying in bed, in no acute distress. Cardiovascular: S1, S2 heard. No murmurs, gallops, or rubs. Regular rate and rhythm. Respiratory: Clear bilaterally to auscultation. No work of breathing or using accessory muscles. Abdomen: Soft, nontender to palpation. Bowel sounds present. No organomegaly. Extremities: No clubbing, cyanosis, or edema. Peripheral pulses present in both legs. Neurological: Patient alert oriented x3. Moves 4 extremities. LABORATORY DATA: Reviewed. ASSESSMENT AND PLAN: 1. Gastrointestinal bleeding secondary to duodenal ulcers. Clinically the patient continues to be stable. Hemoglobin is stable for last 2 to 3 days. From GI exam I think this patient can be discharged. We will continue with Protonix and sucralfate. 2. Acute on chronic kidney disease. Creatinine continues to be around baseline. 3. Hyperkalemia resolved. 4. Hypertension. Blood pressure is under control. We will continue with the same medication. 5. Diabetes mellitus type 2. We will continue with sliding scale insulin and Accu-Cheks before meals and also at bedtime. 6. Deep vein thrombosis prophylaxis. Patient is on SCDs. 7. Physical deconditioning. Patient has been evaluated by physical therapy. He is barely able to walk 25 feet. Before being admitted to the hospital according to the patient, and who is at bedside, the patient was able to take a walk of at least a mile per day. The patient agreed with going to rehab facility. DISPOSITION: At this point, we have put a consult for social services director to start looking for a bed for him for rehab. cc: Herb Pineda MD
[2018-09-18] MEDS: PERICOLACE PO SCH (21:41)
[2018-09-19] MEDS: CARAFATE LIQUID PO SCH ×4 (02:59→20:38)
[2018-09-19 06:32] LABS: BASO# 0.03 X1000 (0.0-0.2); BASO% 0.3 % (0.0-0.8); EOS# 0.32 X1000 (0.0-0.7); EOS% 3.2 % (0.0-10.0); HEMATOCRIT 24.9 % (42.0-52.0); HEMOGLOBIN 8.2 g/dL (14.0-18.0); IMM GRAN# 0.07 X1000 (0.0-0.04); IMM GRAN% 0.7 % (0.0-0.5); LYMPH# 1.03 X1000 (1.2-3.4); LYMPH% 10.4 % (20.5-51.1); MCH 30.1 PG (27-31); MCHC 32.9 g/dL (33-37); MCV 91.5 FL (81-99); MONO# 1.27 X1000 (0.11-0.59); MONO% 12.8 % (1.7-9.3); MPV 10.8 FL (7.4-10.4); NEUT# 7.23 X1000 (1.4-6.5); NEUT% 72.6 % (42.2-75.2); PLT 235 X1000 (130-400); RBC 2.72 XMIL (4.7-6.1); RDW 13.7 % (11.5-14.5); WBC 9.95 X1000 (4.8-10.8)
[2018-09-19] MEDS: PRILOSEC PO SCH ×2 (06:46→20:38)
[2018-09-19] MEDS: HUMALOG SUBQ SCH ×4 (06:55→20:38)
[2018-09-19 07:06] LABS: CALCIUM 8.2 mg/dL (8.8-10.2); CREATININE 2.7 mg/dL (0.7-1.2); POTASSIUM 4.6 mmol/L (3.5-5.1)
[2018-09-19] MEDS: COREG PO SCH ×2 (09:19→20:38)
[2018-09-19] MEDS: CALTRATE 600 PO SCH (09:19)
[2018-09-19] MEDS: ASPIRIN EC PO SCH (09:19)
[2018-09-19] MEDS: BASAGLAR SUBQ SCH (09:19)
[2018-09-19] MEDS: FOLIC ACID PO SCH (09:20)
[2018-09-19] MEDS: ROCALTROL PO SCH (09:20)
--- NOTE | 2018-09-19 13:16 | PROGRESS NOTE ---
DATE: 09/19/2018 SUBJECTIVE: The patient reports feeling okay. He reports having had 1 episode of melena this morning. No other complaints noted. OBJECTIVE: Vital Signs: Temperature 98.6 degrees, heart rate 66, respiratory rate 20, blood pressure 137/53. O2 saturation 97% on room air. General Examination: This is a 77-year-old male, lying in bed, in no acute distress. Cardiovascular: S1, S2 heard. No murmurs, gallops, or rubs. Regular rate and rhythm. Respiratory: Clear bilaterally to auscultation. No work of breathing or using accessory muscles. Abdomen: Soft, nontender to palpation. Bowel sounds present. No organomegaly. Extremities: No clubbing, cyanosis, or edema. Peripheral pulses present in both legs. Neurological: The patient alert, oriented x3. Moves 4 extremities. LABORATORY DATA: Reviewed. ASSESSMENT/PLAN: 1. GI bleeding secondary to duodenal ulcers. Clinically patient is doing good. He had 1 episode of actually black stools. We will continue to check CBC daily. So far, the last 3 days hemoglobin is stable. We will continue to monitor. 2. Acute on chronic kidney disease stage 3. Creatinine continues to be around baseline. We will continue to monitor BMP while this patient is in the hospital. 3. Hyperkalemia resolved. 4. Hypertension. Blood pressure is under control. We will continue with same medication. 5. Diabetes mellitus type 2. We will continue with sliding scale insulin and Accu-Cheks before meals and also at bedtime. 6. Deep vein thrombosis prophylaxis. Patient is on SCDs. 7. Physical deconditioning. Physical therapy working with this patient. The patient needs to go to rehab. adult protective caseworker has been consulted. 8. Disposition. Awaiting rehab bed most likely on Friday. cc: Herb Pineda MD
[2018-09-19] MEDS: PERICOLACE PO SCH (20:38)
[2018-09-20] MEDS: CARAFATE LIQUID PO SCH ×4 (02:30→20:57)
[2018-09-20 06:17] LABS: BASO# 0.02 X1000 (0.0-0.2); BASO% 0.1 % (0.0-0.8); EOS# 0.31 X1000 (0.0-0.7); EOS% 2.2 % (0.0-10.0); HEMATOCRIT 25.6 % (42.0-52.0); HEMOGLOBIN 8.4 g/dL (14.0-18.0); IMM GRAN# 0.08 X1000 (0.0-0.04); IMM GRAN% 0.6 % (0.0-0.5); LYMPH# 0.91 X1000 (1.2-3.4); LYMPH% 6.5 % (20.5-51.1); MCH 30.3 PG (27-31); MCHC 32.8 g/dL (33-37); MCV 92.4 FL (81-99); MONO# 1.37 X1000 (0.11-0.59); MONO% 9.8 % (1.7-9.3); MPV 10.9 FL (7.4-10.4); NEUT% 80.8 % (42.2-75.2); PLT 283 X1000 (130-400); RBC 2.77 XMIL (4.7-6.1); RDW 13.9 % (11.5-14.5); WBC 13.99 X1000 (4.8-10.8)
[2018-09-20] MEDS ORDERED: INSULIN PEN NEEDLES ONE (06:17)
[2018-09-20 06:23] LABS: CALCIUM 8.1 mg/dL (8.8-10.2); CREATININE 2.6 mg/dL (0.7-1.2); POTASSIUM 4.5 mmol/L (3.5-5.1)
[2018-09-20] MEDS: PRILOSEC PO SCH ×2 (06:29→20:57)
[2018-09-20] MEDS: HUMALOG SUBQ SCH ×4 (06:29→20:55)
[2018-09-20] MEDS: COREG PO SCH ×2 (09:53→20:57)
[2018-09-20] MEDS: BASAGLAR SUBQ SCH (09:53)
[2018-09-20] MEDS: FOLIC ACID PO SCH (09:53)
[2018-09-20] MEDS: CALTRATE 600 PO SCH (09:53)
[2018-09-20] MEDS: ASPIRIN EC PO SCH (09:53)
--- NOTE | 2018-09-20 13:00 | PROGRESS NOTE ---
DATE: 09/20/2018 SUBJECTIVE: Patient reports feeling fine. No more episodes of black stools anymore. OBJECTIVE: Vitals: Temperature 98.5 degrees, heart rate 81, respiratory rate 16, blood pressure 168/61, O2 saturation 99% on room air. General Examination: This is a chronically ill-appearing 77-year-old male, lying in bed, in no acute distress. HEENT: Head is normocephalic and atraumatic. Neck: No JVD noted. No carotid bruits. No lymphadenopathy. No thyromegaly. Cardiovascular: S1, S2 heard. No murmurs, gallops, or rubs. Regular rate and rhythm. Respiratory: Exam clear bilaterally to auscultation. No work of breathing or using accessory muscles. Abdomen: Soft. Nontender to palpation. Bowel sounds present. No organomegaly. Extremities: No clubbing, cyanosis, or edema. Peripheral pulses present in both legs. Neurological: Patient alert, oriented x3. Moves 4 extremities. LABORATORY DATA: Reviewed. ASSESSMENT AND PLAN: 1. Gastrointestinal (GI) bleeding secondary to duodenal ulcers. The patient reports yesterday 1 episode of black stool, though he was not completely sure that it was melena or not. In any case, on checking hemoglobin from the last 4 days, it has been completely stable in the range of 8.2 and 8.4. At this point, I think that condition is getting better. We will continue with the same management. 2. Acute on chronic kidney disease, stage 3. Creatinine continues to be around baseline. 3. Hyperkalemia, resolved. 4. Hypertension. Blood pressure is under control. We will continue with the same medications. 5. Diabetes mellitus, type 2. We will continue with sliding scale insulin and Accu-Chek before meals and also at bedtime. 6. Deep vein thrombosis (DVT) prophylaxis. Patient is on SCDs. 7. Physical deconditioning. Physical Therapy working with this patient. DISPOSITION: The patient clinically is stable. We are awaiting a rehabilitation bed, most likely Friday or Friday. cc: Herb Pineda MD
[2018-09-20] MEDS: PERICOLACE PO SCH (20:58)
[2018-09-21] MEDS: HUMALOG SUBQ SCH ×5 (00:06→22:28)
[2018-09-21] MEDS: CARAFATE LIQUID PO SCH ×4 (01:03→22:27)
[2018-09-21] MEDS: PRILOSEC PO SCH ×2 (06:17→22:27)
[2018-09-21 07:01] LABS: BASO# 0.06 X1000 (0.0-0.2); BASO% 0.2 % (0.0-0.8); EOS# 0.07 X1000 (0.0-0.7); EOS% 0.3 % (0.0-10.0); HEMATOCRIT 27.2 % (42.0-52.0); HEMOGLOBIN 8.8 g/dL (14.0-18.0); IMM GRAN# 0.14 X1000 (0.0-0.04); IMM GRAN% 0.5 % (0.0-0.5); LYMPH# 1.17 X1000 (1.2-3.4); LYMPH% 4.2 % (20.5-51.1); MCH 31.3 PG (27-31); MCHC 32.4 g/dL (33-37); MCV 96.8 FL (81-99); MONO# 2.95 X1000 (0.11-0.59); MONO% 10.6 % (1.7-9.3); MPV 11.1 FL (7.4-10.4); NEUT# 23.39 X1000 (1.4-6.5); NEUT% 84.2 % (42.2-75.2); PLT 216 X1000 (130-400); RBC 2.81 XMIL (4.7-6.1); RDW 14.1 % (11.5-14.5); WBC 27.78 X1000 (4.8-10.8)
[2018-09-21 08:37] LABS: ALBUMIN 2.5 g/dL (3.5-5.0); CALCIUM 7.8 mg/dL (8.8-10.2); CREATININE 2.8 mg/dL (0.7-1.2); PHOSPHORUS 2.5 mg/dL (2.7-4.5); POTASSIUM 4.1 mmol/L (3.5-5.1)
[2018-09-21] MEDS: COREG PO SCH ×2 (09:17→22:27)
[2018-09-21] MEDS: FOLIC ACID PO SCH (09:17)
[2018-09-21] MEDS: BASAGLAR SUBQ SCH (09:17)
[2018-09-21] MEDS: ASPIRIN EC PO SCH (09:17)
[2018-09-21] MEDS: CALTRATE 600 PO SCH (09:17)
[2018-09-21] MEDS: ROCALTROL PO SCH (09:17)
--- NOTE | 2018-09-21 12:03 | NEPHROLOGY PROGRESS NOTE ---
DATE: 09/21/2018 DATE AND TIME SEEN: On 09/21/2018 at 0725 hours. SUBJECTIVE: Mr. Cuevas is resting quietly in bed. Head of the bed is slightly elevated. He appears chronically ill with no acute distress. OBJECTIVE: His most recent vital signs, his last temperature 98.6 degrees, blood pressure 121/50, heart rate 69, respirations 16. He is currently on CPAP. Last recorded saturation 99%. He has had 700 input, and he has had 0 recorded output. LABORATORY DATA: Sodium 136, potassium 4.1, chloride 106, CO2 of 18, BUN 44, creatinine 2.8, glucose 263, anion gap of 12, calcium 7.8, phosphorus 2.5, albumin 2.5. White count 27.78, hemoglobin 8.8, hematocrit 27.2, platelet count 216. PHYSICAL EXAMINATION: General: This is a 77-year-old white male, currently resting quietly in bed. Head of the bed is elevated. He has no acute distress. Skin: Warm and dry. HEENT: Normocephalic, atraumatic. Conjunctiva is pale. He has LIVAN. Mucous membranes are dry. Neck: Supple. Trachea midline. No evidence of JVD. Cardiovascular: He is regular rate and rhythm. He has an S4 present. Lungs: Clear to auscultation anteriorly. Equal excursion. He is now on room air. Abdomen: Soft, nontender. Positive bowel sounds. Genitourinary: The patient states that he has been voiding though there has been 0 recorded in or out in the last 24 hours. Extremities: Have no edema, no clubbing or cyanosis. Neurological: Alert and oriented x2. ASSESSMENT AND PLAN: 1. Acute kidney injury. The patient has had a continued improvement on his creatinine until this morning. It is holding stable at 2.8. BUN remains stable. We have requested the nurses to keep a strict intake and output on this gentleman secondary to the patient being in acute renal failure. No indications for intervention at this time. 2. Electrolytes, acid-base balance and anemia. These all appear acceptable. 3. Leukocytosis. The patient currently remains on no antibiotics. This has been followed by the primary care team. This is a jump from yesterday of a white count of 13.99 up to 27.78. We will place him on Zosyn to be renally dosed. We will check blood cultures and then defer to the primary care. I would like to thank you for allowing us to follow with this patient. Dictated by ROBERT Chou for Tristan Singer MD Face to face encounter, data reviewed, discussed with Mirna Monsivais on 09/21/18. I agree with the above assessment and plan of care. cc: ROBERT Chou MD [facility]
[2018-09-21 12:21] LABS: HEMATOCRIT 24.7 % (42.0-52.0); HEMOGLOBIN 8.1 g/dL (14.0-18.0); MCH 29.9 PG (27-31); MCHC 32.8 g/dL (33-37); MCV 91.1 FL (81-99); RBC 2.71 XMIL (4.7-6.1); RDW 13.8 % (11.5-14.5); WBC 28.36 X1000 (4.8-10.8)
--- NOTE | 2018-09-21 14:03 | PROGRESS NOTE ---
DATE: 09/21/2018 SUBJECTIVE: The patient reports feeling fine. No more signs or symptoms of GI bleeding like black stools or blood in stools or hematemesis. Denies any cough or fever. OBJECTIVE: Vital Signs: Temperature 99.9 degrees, heart rate 82, respiratory rate 16, blood pressure 139/57, and O2 saturation 100% on room air. General: On examination, this is a chronically ill-appearing 77-year-old male, lying in bed, in no acute distress. HEENT: Head is normocephalic, atraumatic. Neck: No JVD noted. No carotid bruits. No lymphadenopathy. No thyromegaly. Cardiovascular: S1 and S2 heard. No murmurs, gallops, or rubs. Regular rate and rhythm. Respiratory: Clear bilaterally to auscultation. No work of breathing or using accessory muscles. Abdomen: Soft, nontender to palpation. Bowel sounds present. No organomegaly. Extremities: No clubbing, cyanosis, or edema. Peripheral pulses present in both legs. Neurological: Patient is alert and oriented x3. Moves 4 extremities. LABORATORY DATA: White cell count 28.36, hemoglobin 8.1, hematocrit 24.7, platelets 96,000. Creatinine is 2.8. ASSESSMENT AND PLAN: 1. Gastrointestinal bleeding secondary to duodenal ulcer. Actually that was the reason why this patient was admitted to the hospital. Esophagogastroduodenoscopy showed duodenal ulcers. Two days ago, he had the last episode of black stools. Since then, no more signs of bleeding. Hemoglobin has been stable so far. He has been transfused 2 units of blood so far 4 days ago and no more blood has been provided to him. At this point, this condition is much better. 2. Acute on chronic kidney disease stage 3. Creatinine is at his baseline. 3. Hyperkalemia resolved. 4. Hypertension. Blood pressure is under control. We will continue with the same medications. 5. Diabetes mellitus. Patient has been started here on Lantus 15 units subcutaneously in the morning. Home blood sugar has been better controlled until yesterday. Today is slightly elevated to 63. We will continue with Accu-Chek before meals and also at bedtime. 6. Leukocytosis. The patient started having elevated leukocytes yesterday and today. Mild temperature noted at 99.9. At this time, nephrology has decided to place this patient on Zosyn, renally dosed, and ordered blood cultures. I have ordered chest x-ray, PA and lateral, and urine culture as well. We will see what it shows. In the meantime, we will continue with antibiotics. 7. Physical deconditioning. Initially, the plan for this patient last Friday was to send him to rehab facility, but the patient has been working with them, and today I talked to the physical therapy team, and they think that this patient can be safely sent home with home health. So, at this point, the only thing pending for this patient is leukocytosis and mild degree of fever. We will continue to monitor this patient closely. cc: Herb Pineda MD
--- NOTE | 2018-09-21 14:28 | Diag Imaging Result Doc PS360 ---
CHEST-2 VIEWS - 09/21/2018 INDICATION: elevated WBC COMPARISON: 09/15/2018 FINDINGS: The lungs are normally expanded and clear. Heart size and mediastinal contours are normal. No pneumothorax or pleural effusion. Stable left-sided pacemaker. IMPRESSION: Negative exam. Electronically signed by Shiv Feliciano 09/21/2018 2:26 PM
--- NOTE | 2018-09-21 14:32 | GASTROENTEROLOGY PROGRESS NOTE ---
DATE: 09/21/2018 SUBJECTIVE: Patient is awake, alert, in no acute distress. He did have some black stools after the procedure but last documented stool was brown in color. He states he has been working with physical therapy on walking in the [place]. He is not sure if he will go to rehab or go straight home. OBJECTIVE: Vital Signs: Temperature 99.9 degrees, pulse 82, respirations 16, blood pressure 139/57. General: Patient is awake, alert, no acute distress. LABORATORY: Hematology. WBC 28.36, hemoglobin 8.1, hematocrit 24.7, MCV 91.1, platelets 296,000. Chemistry. Sodium 136, potassium 4.1, chloride 106, CO2 18, BUN 44, creatinine 2.8, glucose 263. ASSESSMENT AND PLAN: 1. Recent gastrointestinal bleeding with EGD on 09/15/2018 showing duodenal ulcers with visible vessel treated and gastritis. Continue PPI twice daily for a month and then decrease to daily. 2. Acute/chronic kidney disease seen by Nephrology. 3. Leukocytosis with low-grade fever. Patient has been started on antibiotics. Chest x-ray and urinalysis have been ordered. Defer management to hospitalist and Nephrology. Continue to monitor hemoglobin and hematocrit. Monitor for further signs of active bleeding. Continue PPI twice daily. He will need twice daily dosage for a month and then can decrease to daily. Recommend patient follow up with us as an outpatient. Further plans will be made according to his progress. I have discussed this case with Dr. Wasserman. Dictated by ROBERT Ordonez for Óscar Wasserman MD cc: ROBERT Swanson MD [facility]
[2018-09-21] MEDS: ZOSYN 2.25 GM in NS 50 ML IV SCH ×2 (15:47→23:43)
[2018-09-21] MEDS: PERICOLACE PO SCH (22:27)
[2018-09-22] MEDS: CARAFATE LIQUID PO SCH ×4 (02:20→20:48)
[2018-09-22] MEDS: PRILOSEC PO SCH ×2 (06:01→20:47)
[2018-09-22] MEDS: HUMALOG SUBQ SCH ×4 (06:15→20:47)
[2018-09-22 07:06] LABS: BASO# 0.02 X1000 (0.0-0.2); BASO% 0.1 % (0.0-0.8); EOS# 0.12 X1000 (0.0-0.7); EOS% 0.4 % (0.0-10.0); HEMATOCRIT 22.9 % (42.0-52.0); HEMOGLOBIN 7.6 g/dL (14.0-18.0); IMM GRAN# 0.15 X1000 (0.0-0.04); IMM GRAN% 0.5 % (0.0-0.5); LYMPH# 0.84 X1000 (1.2-3.4); MCHC 33.2 g/dL (33-37); MCV 90.5 FL (81-99); MONO# 2.38 X1000 (0.11-0.59); MONO% 8.6 % (1.7-9.3); MPV 10.8 FL (7.4-10.4); NEUT# 24.28 X1000 (1.4-6.5); NEUT% 87.4 % (42.2-75.2); PLT 314 X1000 (130-400); RBC 2.53 XMIL (4.7-6.1); RDW 13.5 % (11.5-14.5); WBC 27.79 X1000 (4.8-10.8)
[2018-09-22 07:17] LABS: ALBUMIN 2.6 g/dL (3.5-5.0); CALCIUM 8.2 mg/dL (8.8-10.2); POTASSIUM 4.1 mmol/L (3.5-5.1)
[2018-09-22 07:34] LABS: BANDS 2 % (0-1); LYMPHS 4 % (21-51); MONO 6 % (1-9); SEGS 88 % (42-75)
[2018-09-22] MEDS: ASPIRIN EC PO SCH (08:57)
[2018-09-22] MEDS: ZOSYN 2.25 GM in NS 50 ML IV SCH (08:57)
[2018-09-22] MEDS: FOLIC ACID PO SCH (08:57)
[2018-09-22] MEDS: BASAGLAR SUBQ SCH (08:58)
[2018-09-22] MEDS: CALTRATE 600 PO SCH (08:58)
[2018-09-22] MEDS: COREG PO SCH ×2 (08:58→20:47)
--- NOTE | 2018-09-22 12:32 | NEPHROLOGY PROGRESS NOTE ---
DATE: 09/22/2018 TIME SEEN: 0648. SUBJECTIVE: Mr. Cuevas is resting in bed. He denies any pain. No discomfort. OBJECTIVE: Vital Signs: His most recent vital signs are temperature 98.7 degrees, blood pressure 146/68, heart rate 83, respirations 16. He is on room air. Last recorded saturation was 100%. He has had 720 in and 250 out to void, though he states that he has voided more than what has been recorded. Labs: Sodium 138, potassium 4.1, chloride is 107, CO2 21, BUN 50, his creatinine is up to 3, glucose of 96, anion gap of 10, calcium 8.2, phosphorus 3, albumin 2.6. White count 27.75, hemoglobin 7.6, hematocrit 22.9, with a platelet count of 314,000. The patient's blood cultures are currently pending. Chest x-ray completed yesterday is negative. Urinalysis is positive for gram-negative rods with sensitivity pending. No further temperature throughout the night. Physical Examination: General: This is a 77-year-old, white male resting quietly in bed. Head of the bed is elevated. No acute distress. Skin is warm and dry. HEENT: Normocephalic, atraumatic. Conjunctivae are pale. He has LIVAN. Mucous membranes are dry. Neck: Supple. Trachea midline. No JVD. Cardiovascular: Regular rate and rhythm. Patient has an S4. Lungs: Clear to auscultation bilaterally. Equal excursion, on room air. Abdomen: Soft, round, nontender. Positive bowel sounds. Genitourinary: Not inspected. Patient has a urine bad credit collector with urine in it at this time sitting at the bedside. It is more than 350 mL out. Extremities: Have trace edema. No clubbing or cyanosis. Neurological: Alert and oriented x2. ASSESSMENT AND PLAN: 1. Acute kidney injury. BUN and creatinine have continued to elevate. The patient does have positive urine cultures for a urinary tract infection. He remains on Zosyn which is renally dosed. Sensitivity is still pending. Blood cultures are still currently pending. We have requested the nursing staff to keep strict intakes and outputs on his intake and output. 2. Electrolytes and acid-base balance. These are acceptable. 3. Leukocytosis. Again, the patient has a positive urinary tract infection. Blood cultures are currently pending. Chest x-ray was negative. He remains on renal dosed Zosyn. I would like to thank you for allowing us to follow with this patient. Dictated by ROBERT Chou for Tristan Singer MD Face to face encounter, data reviewed, discussed with Mirna Monsivais on 09/22/18. I agree with the above assessment and plan of care. cc: ROBERT Chou MD [facility]
--- NOTE | 2018-09-22 15:32 | INFECTIOUS DISEASE CONSULT REP ---
DATE: 09/22/2018 CONCLUSION: I have been asked to see the patient because he has fever and leukocytosis. The patient does have a gram-negative jennifer urinary tract infection and this could be causing fever and leukocytosis. RECOMMENDATIONS: I have discontinued Zosyn and have placed the patient instead on cefepime. I have ordered a renal ultrasound and also requested during the ultrasound to measure the patient's postvoid residual urine. DISCUSSION: The patient came in the hospital initially with GI bleeding. About 2 days ago he had a fever up to 103. His white count has been steadily increasing and today his CBC showed a white count of 27,790, hemoglobin 7.6, and platelet count 314,000. Creatinine is 3. GFR is 20. Urine is growing a gram-negative jennifer. Blood cultures are pending. Chest x-ray shows clear lung jacobsen. PAST MEDICAL HISTORY/REVIEW OF SYSTEMS: Eyes and ears: Patient has decreased vision and hearing. Neck: No stiffness. Respiratory: No cough or shortness of breath. GI: No nausea, vomiting, or diarrhea. : No dysuria or flank pain. Neurologic: No seizures. No loss of motor or sensory function. Integument: No rash. Bones, joints, muscles: No swollen joints or muscle aching. 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 He had a ruptured kidney when he was kicked by a cow but he did not require any surgery. 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 MEDICAL DISEASES: Positive for some type of cardiac arrhythmia which required the patient to have a pacemaker, diabetes mellitus, and hypertension. INFECTIOUS DISEASE HISTORY: Negative for pneumonia and UTI. FAMILY HISTORY: Positive for cancer. SOCIAL HISTORY: [place] He is . He has no pets at home. He is a retired [employer] engineer. He does not smoke, drink alcoholic beverages, or abuse drugs. ALLERGIES: He has no known drug allergies. HOME MEDICATIONS: Amlodipine, calcitriol, carvedilol, Uloric, insulin, and spironolactone. PHYSICAL EXAMINATION: Vital Signs: The patient's temperature is 97.4 degrees, pulse 67, respirations 14, blood pressure 142/50. General: This is a fairly healthy-appearing, elderly male. He is in no acute distress. Head, eyes, ears, nose, and throat: He can hear my spoken words and see near objects. He does not have any white patches in his mouth. There is no drainage from his nose or ears. Neck: No pain with movement. Lungs: Clear to auscultation. Cardiovascular: Heart rate is regular. I did not hear a murmur. Abdomen: Soft and nontender. Neurologic: The patient is alert. He can move his extremities. There is no tremor. His sensation is intact to touch. Memory as regarding his medical history is intact. Integument: No rash noted. Thank you for the consult. cc: Osorio Iqbal MD
[2018-09-22] MEDS: MAXIPIME 1 GM in NS 50 ML IV SCH (16:15)
--- NOTE | 2018-09-22 16:15 | Diag Imaging Result Doc PS360 ---
US RENAL 2 (RETROPER) COMPLETE - 09/22/2018 INDICATION: UTI TECHNIQUE: COMPARISON: CT from 09/14/2018 FINDINGS: There are bilateral renal cysts. The largest on the right side measures 3 cm. The largest on the left measures 1.9 cm. No hydronephrosis or renal mass. The right kidney measures 9.7 x 5.1 x 5.9 cm. Cortex measures 8 mm. The left kidney measures 10.4 x 5.2 x 5.6 cm. Cortex measures 9 mm. Prevoid bladder volume is 498 mL. Post void is 327 mL. IMPRESSION: 1. Significant postvoid residual volume indicating urinary retention. 2. Bilateral renal cysts but no acute abnormality of the kidneys. Electronically signed by Shiv Feliciano 09/22/2018 4:12 PM
--- NOTE | 2018-09-22 17:35 | PROGRESS NOTE ---
DATE: 09/22/2018 SUBJECTIVE: The patient is resting comfortably in bed. He states that he does not have any complaints at this time. He reports that he is eating well and having regular bowel movements. OBJECTIVE: Vital Signs: Temperature 97 degrees, blood pressure 142/50, heart rate 67, respirations 14, and O2 saturation 96% on room air. General: This is an elderly male, lying in, bed in no acute distress. Heart: S1 and S2, normal. Regular rate and rhythm. Lungs: Equal air entry bilaterally. No wheezing. No rales. No rhonchi. Abdomen: Positive bowel sounds. Soft, nontender, nondistended. Extremities: No edema, no cyanosis. Neurologic: The patient is alert and oriented x4. LABORATORY DATA: White blood cell count 27, hemoglobin 7.6, hematocrit 22, platelets 314,000. Sodium 138, potassium 4.1, chloride 107, CO2 of 21, BUN 50, creatinine 3, glucose 196, albumin 2.6. ASSESSMENT AND PLAN: 1. Fever. The patient had a fever of 102.9 on the . His urine culture is growing gram- negative rods. We will consult with infectious disease for the appropriate antibiotic coverage. 2. Gastrointestinal bleed secondary to duodenal ulcer with visible vessel, status post treatment. Continue with omeprazole. 3. Urinary retention. The ultrasound done today is showing that the patient is retaining urine. We will have a Griffiths catheter placed and start the patient on Flomax. We will also consult with the urologist. 4. Diabetes mellitus type 2. Continue on glargine and sliding scale insulin. 5. Acute kidney injury on chronic kidney disease. The patient's BUN and creatinine are a little bit higher today. This increase may be secondary to urinary retention. Nephrology is following. 6. Hypertension. Continue on the current antihypertensive regimen. 7. Deep vein thrombosis prophylaxis. Continue with sequential compression devices. We will avoid heparin products due to the patient's recent gastrointestinal bleed. cc: MD JUNO Mckeon
--- NOTE | 2018-09-22 18:37 | GASTROENTEROLOGY PROGRESS NOTE ---
DATE: 09/22/2018 SUBJECTIVE: Patient denies complaints at present time. He has a visitor at the bedside. Patient has reported noticing some dark stool. His hemoglobin and hematocrit did drop slightly today. Per intake and output report, there was a noted brown stool today. Patient had EGD on 09/15/2018 that showed duodenal ulcers with visible vessel treated and gastritis. Patient is currently taking Prilosec 40 mg twice daily and Carafate. OBJECTIVE: Vital Signs: Temperature 97.4 degrees, pulse 67, respirations 14, blood pressure 142/50. General: Patient is awake, alert, no acute distress. LABORATORY: Hematology: WBC 27.79, hemoglobin 7.6, hematocrit 22.9, MCV 90.5. Chemistry: Sodium 138, potassium 4.1, chloride 107, CO2 21, BUN 50, creatinine 3.0, glucose 96. ASSESSMENT AND PLAN: 1. Recent gastrointestinal bleeding with duodenal ulcers and visible vessel, treated. Continue PPI. Patient had drop in his hemoglobin and hematocrit today. I & O reports brown stool. Will continue to follow for further evidence of active bleeding. Monitor hemoglobin and hematocrit and transfuse packed red blood cells if needed. 2. Recent fever, diagnosis of urinary tract infection. On antibiotics. 3. Urinary retention. I believe patient has had Griffiths catheter placed and started on Flomax. 4. Acute versus chronic kidney disease. BUN and creatinine have increased slightly today. Following with Nephrology. 5. We will continue to follow during his hospital course. Recommend to continue PPI twice daily for a month and then decrease to daily. Will follow up with the patient in the office and plan to repeat EGD in 3 to 4 months to confirm healing of duodenal ulcers. Patient voices understanding of this plan. I have discussed this case with Dr. Wasserman. Dictated by ROBERT Ordonez for Óscar Wasserman MD cc: ROBERT Swanson MD [facility]
[2018-09-22 18:45] LABS: URINE SOURCE CATH
[2018-09-22 18:50] LABS: BILIRUBIN URINE NEGATIVE (NEGATIVE); BLOOD URINE LARGE (NEGATIVE); COLOR YELLOW; GLUCOSE URINE 300 mg/dL (NEGATIVE); KETONE URINE NEGATIVE (NEGATIVE); LEUKOCYTES URINE SMALL (NEGATIVE); NITRITE URINE POSITIVE (NEGATIVE); PH URINE 5.5; PROTEIN URINE 100 mg/dL (NEGATIVE); SP GRAVITY URINE 1.004; TURBIDITY URINE HAZY (CLEAR); UROBILINOGEN URINE NORMAL (NORMAL)
[2018-09-22 18:54] LABS: UR EPITHELIAL CELLS <10 /HPF (<10); URINE BACTERIA NEGATIVE /HPF; URINE RBC TNTC /HPF (<10); URINE WBC <10 /HPF (<10)
[2018-09-22 19:12] LABS: URINE YEAST NONE SEEN
[2018-09-22] MEDS: PERICOLACE PO SCH (20:47)
[2018-09-23] MEDS: CARAFATE LIQUID PO SCH ×4 (03:07→22:09)
[2018-09-23] MEDS: MAXIPIME 1 GM in NS 50 ML IV SCH ×2 (03:07→17:53)
[2018-09-23 06:40] LABS: ALBUMIN 2.6 g/dL (3.5-5.0); CALCIUM 8.2 mg/dL (8.8-10.2); CREATININE 3.1 mg/dL (0.7-1.2); PHOSPHORUS 3.5 mg/dL (2.7-4.5); POTASSIUM 4.3 mmol/L (3.5-5.1)
[2018-09-23] MEDS: HUMALOG SUBQ SCH ×4 (06:48→22:08)
[2018-09-23] MEDS: PRILOSEC PO SCH ×2 (06:48→22:10)
[2018-09-23 07:50] LABS: HEMATOCRIT 22.9 % (42.0-52.0); HEMOGLOBIN 7.4 g/dL (14.0-18.0); MCH 30.6 PG (27-31); MCHC 32.3 g/dL (33-37); MCV 94.6 FL (81-99); MPV 11.4 FL (7.4-10.4); RBC 2.42 XMIL (4.7-6.1); WBC 17.16 X1000 (4.8-10.8)
--- NOTE | 2018-09-23 08:21 | NEPHROLOGY PROGRESS NOTE ---
DATE: 09/23/2018 TIME SEEN: 0630. SUBJECTIVE: Mr. Cuevas states that he has had a rough night, feels the need to go to the restroom. Unable to completely finish. OBJECTIVE: Vitals: His most recent vital signs, temperature 97.8, blood pressure 154/51, heart rate 62, respirations 16. He remains on CPAP at 2 L. Last recorded saturation is 100%. He has had 720 in, 1552 out to Griffiths catheter. General: This is an 78-year-old elderly male, resting quietly in bed. He appears chronically ill, no acute distress. Skin: Warm and dry. HEENT: Normocephalic, atraumatic. Conjunctiva pale pink. He has LIVAN. Mucous membranes are dry. Neck: Supple. Trachea midline. No JVD. Cardiovascular: Regular rate and rhythm. He has an S4 present. Lungs: Clear to auscultation anteriorly. Equal excursion on O2 with CPAP. Abdomen: Soft, round, nontender. Positive bowel sounds. Genitourinary: Not inspected. Adequate urine output documented. Extremities: Trace edema. No clubbing or cyanosis. Neurological: Alert and oriented x2. LABORATORIES: Sodium is 143, potassium 4.3, chloride 114, CO2 17, BUN 50, creatinine 3.1, glucose 139. His anion gap is 12. His calcium is 8.2, phosphorus 3.5, albumin 2.6. White count 17.16, hemoglobin 7.4, hematocrit 22.9 with a platelet count of 341,000. Patient's urinalysis is cloudy, large hematuria, positive proteinuria. RBCs, WBCs too numerous to count. Urine culture shows gram- negative rods. Sensitivity to follow. ASSESSMENT AND PLAN: 1. Acute kidney injury. Patient's BUN and creatinine continue to elevate, though the rise has slowed down to only 3.1, creatinine from 3 as of yesterday. He has had adequate urine output per Griffiths catheter. We will continue to monitor and follow. Sensitivity remains for his positive urine culture. He does remain on Zosyn, renally dosed. 2. Electrolytes and acid-base balance. These are acceptable. 3. Anemia. This remains low. We will defer to the Primary Care Team for intervention. 4. Leukocytosis. Again, positive urinary tract infection. Remains on Zosyn with the cultures pending. I would to thank you for allowing us to follow with this patient. Dictated by ROBERT Chou for Tristan Singer MD Face to face encounter, data reviewed, discussed with Mirna Monsivais on 09/23/18. I agree with the above assessment and plan of care. cc: ROBERT Chou MD [facility]
[2018-09-23] MEDS ORDERED: FLOMAX PO SCH (09:00)
[2018-09-23] MEDS: CALTRATE 600 PO SCH (09:35)
[2018-09-23] MEDS: ROCALTROL PO SCH (09:35)
[2018-09-23] MEDS: ASPIRIN EC PO SCH (09:36)
[2018-09-23] MEDS: FOLIC ACID PO SCH (09:37)
[2018-09-23] MEDS: BASAGLAR SUBQ SCH (09:37)
[2018-09-23] MEDS: COREG PO SCH ×2 (09:37→22:09)
--- NOTE | 2018-09-23 13:36 | CONSULTATION ---
DATE OF CONSULTATION: 09/23/2018 CONSULTING PHYSICIAN: Dr. Swartz. REASON FOR CONSULTATION: Urinary retention. HISTORY OF PRESENT ILLNESS: An 78-year-old male, who is known to me secondary to history of BPH, elevated PSA, and erectile dysfunction. He was admitted to the hospital on 09/14/2018 secondary to bloody stools. He underwent an EGD with hemorrhage control and biopsy of the duodenal ulcers. He has had a hard time voiding after that which prompted Griffiths catheter placement. He was seen by me in clinic in June of 2018 secondary to elevated PSA and BPH. At that time, he had nocturia times 2 to 3. His PSA in 2017 was 3.3. He had a fairly unremarkable prostate exam. At that time, the plan was to see him in 1 year. He states that his urination has been fairly stable. He has the nocturia which has not changed. He has occasional urgency and hesitancy, but none to warrant interventions. He denies gross hematuria, dysuria, or flank pain. He does state that he feels better with a Griffiths catheter in place as he could tell prior to Griffiths placement that he was not emptying. PAST MEDICAL HISTORY: Hypertension, diabetes mellitus, chronic kidney disease, obstructive sleep apnea, and coronary artery disease. PAST SURGICAL HISTORY: Exploratory laparotomy secondary to adhesions. Mesenteric rupture. Inner ear surgery. Recent EGD with fulguration of bleeding ulcer. ALLERGIES: No known drug allergies. HOME MEDICATIONS: Carvedilol, Humalog, amlodipine, aspirin, spironolactone, folic acid, Uloric, calcitriol and calcium carbonate. SOCIAL HISTORY: He denies tobacco, alcohol or illicit drug use currently. FAMILY HISTORY: Leukemia. Negative for malignancies. REVIEW OF SYSTEMS: Reviewed 12 systems and negative except for HPI. PHYSICAL EXAMINATION: T 97.9 degrees, P 67, and BP 148/62.General: No acute distress. HEENT: Normocephalic, atraumatic. Cardiovascular: Regular rate and rhythm. Pulmonary: Bilateral breath sounds. Abdomen: Scaphoid. Nontender to palpation. No involuntary guarding noted. Back: No CVA tenderness. : Normal external male genitalia, testes descended bilaterally, redundant foreskin. Griffiths catheter in place draining straw-colored urine. Perineum has structural integrity in place. No rashes noted. Digital rectal examination approximately 50 g gland. There is a right-sided asymmetry but not a concerning nodule or discrete nodule noted. PERTINENT LABORATORY DATA: White cell count of 17,000 and hematocrit is 23. Creatinine is 3.1, it was 2.6 on 09/20/2018. Pertinent images show CT abdomen and pelvis on 09/14/2018 revealing bilateral renal cysts without evidence of hydronephrosis. ASSESSMENT/PLAN: An 78-year-old male with a history of BPH and ED who went into urinary retention after being admitted secondary to GI bleed. I have discussed with the patient that it is likely a combination of his long-standing BPH that he elected not to address within the past with medical therapy as well as stress of hospitalization and the procedure. We discussed that he would definitely benefit from long-term Flomax. We discussed being on Flomax b.i.d. for several days in order to try to improve his voiding. I discussed that he would benefit from a voiding trial in 2 days. Regarding his asymmetry on the digital rectal examination, it is new, but at this time obviously PSA would not be a good idea given his recent catheterization as well as Pseudomonas urine culture from 09/21/2017. The patient voiced understanding and wants to keep the catheter in for several days prior to attempt a voiding trial. PLAN: 1. Keep Griffiths catheter in for now. 2. I have increased his Flomax from once a day that was started by Dr. Swartz to twice a day temporarily. Hopefully, he will be on Flomax 0.4 at bedtime long-term once he is able to void. 3. I agree with cefepime for now. Per Dr. Iqbal, I would recommend UTI treatment for 7 to 10 days. 4. Recommend attempt a voiding trial with Griffiths removal on 09/25/2018. 5. We will follow. 6. Thank you for consultation. cc: Brent Velazquez MD
--- NOTE | 2018-09-23 14:33 | PROGRESS NOTE ---
DATE: 09/23/2018 SUBJECTIVE: The patient is resting comfortably in bed. No acute events noted overnight. OBJECTIVE: Vital Signs: Temperature 98.5 degrees, blood pressure 145/44, heart rate 67, respirations 18, O2 saturation 98% on room air. Urine output 1.5 L. General: This is a chronically ill-appearing elderly male lying in bed, in no acute distress. Heart: S1, S2 normal. Regular rate and rhythm. Lungs: Clear to auscultation bilaterally. Abdomen: Positive bowel sounds. Soft, nontender, nondistended. Extremities: No edema. No cyanosis. No calf tenderness. Neurologic: The patient is alert and oriented x3. LABORATORY DATA: White blood cell count 17, hemoglobin 7.4, hematocrit 22, platelets 341,000. Sodium 143, glucose 139, BUN 50, creatinine 3.1, chloride 114, CO2 17, albumin 2.6, calcium 8.2. ASSESSMENT AND PLAN: 1. Urinary tract infection secondary to Pseudomonas. Will continue on cefepime. After discussion with Dr. Iqbal, the patient will be switched to oral Levaquin upon discharge. 2. Urinary retention. The patient has been seen by Dr. Velazquez and his Flomax dosage has been increased. We will continue to monitor closely. 3. Acute kidney injury on chronic kidney disease. Stable. Continue to monitor closely. 4. Hypertension. Stable. 5. Diabetes mellitus type 2. Continue on glargine and sliding scale insulin. 6. Gastrointestinal bleed secondary to a duodenal ulcer with a visible vessel status post treatment. Continue on omeprazole. 7. Deep vein thrombosis prophylaxis. Continue with SCDs. 8. Disposition. The patient will hopefully be ready for discharge in the next 24 hours. cc: Xiomy Swartz MD [facility]
--- NOTE | 2018-09-23 14:53 | INFECTIOUS DISEASE PROGRESS NO ---
DATE: 09/23/2018 PRESENT ILLNESS: The patient has a Pseudomonas urinary tract infection associated with urinary retention. MEDICATIONS: The patient is receiving cefepime. This is day #1 of treatment with that antibiotic. Before he was on Zosyn, so the patient has actually had two days of treatment with antibiotics. PHYSICAL EXAMINATION: Vital Signs: Temperature is 98.5, pulse 67, respirations 18, blood pressure 145/44. General: This is an ill-appearing elderly male. He is in no acute distress. Head, Eyes, Ears, Nose and Throat: He can hear my spoken words and see near objects. He does not have any white patches in his mouth. Neck: He does not have any pain when he moves his neck. Lungs: Clear to auscultation. Cardiovascular: Heart rate is regular. Thorax: The patient has a pacemaker present in the upper left side of the chest. The site is not swollen or tender. Abdomen: Soft and nontender. Neurologic: Patient is alert. He can move his extremities. He does not have a tremor. His memory as regarding his medical history is intact. Integument: No rash noted. LAB AND X-RAY: The urine culture grew Pseudomonas. The renal ultrasound showed bilateral renal cysts and a postvoid residual urine of 327 mL. ASSESSMENT AND PLAN: When the patient is discharged home I will switch him over to Levaquin. I plan on treating the patient for a total of [address] Velazquez is following the patient now and he will take care of the patient's urinary retention. CO-MORBIDITIES: The patient has a pacemaker present in the upper to left side of the chest. cc: Osorio Iqbal MD [facility]
[2018-09-23] MEDS: VITAMIN B-12 SL SCH (15:13)
--- NOTE | 2018-09-23 15:15 | GASTROENTEROLOGY PROGRESS NOTE ---
DATE: 09/23/2018 SUBJECTIVE: Patient is awake, alert, in no acute distress. The patient states he did have a bowel movement. He still reports it as dark in color, but intake and output report documents a brown stool. Patient's hemoglobin and hematocrit are holding stable around 7.4 and 22.9. Patient is being followed by Nephrology and Urology. The patient has had trouble with urinary retention. He has had a Griffiths catheter placed and he is also being treated for urinary tract infection. OBJECTIVE: Vital Signs: Temperature 98.5, pulse 67, respirations 18, blood pressure 145/44. General: Currently, patient is awake and alert, in no acute distress. LABORATORY: Hematology: WBC 17.16, hemoglobin 7.4, hematocrit 22.9, MCV 94.6, platelet 341,000. Chemistry: Sodium 143, potassium 4.3, chloride 114, BUN 50, creatinine 3.1, glucose 139. EGD on 09/15/2018 showed duodenal ulcers with visible vessel treated and gastritis. ASSESSMENT AND PLAN: 1. Recent gastrointestinal bleeding with duodenal ulcers and visible vessel treated, along with gastritis. Recommend to continue PPI twice daily for 1 month and then decrease to daily. Would recommend following up with a repeat EGD in 3 to 4 months to confirm healing of ulcers. Will continue to monitor hemoglobin and hematocrit, and monitor for any signs of active bleeding. 2. Urinary tract infection. Following with Dr. Iqbal. Patient has also been seen by Dr. Velazquez and he has been started on Flomax and has a Griffiths catheter in place. 3. Acute versus chronic kidney disease. Following with Nephrology. 4. GI will continue to follow. Monitor for any signs of active bleeding. Monitor hemoglobin and hematocrit. Recommend he follow up as an outpatient. Recommend to continue PPI twice daily for a month and then decrease to daily. Will repeat EGD in 3 to 4 months to confirm healing of duodenal ulcers. Patient voices understanding of this plan. I have discussed this case with Dr. Wasserman. Dictated by ROBERT Ordonez for Óscar Wasserman MD cc: ROBERT Swanson MD
[2018-09-23] MEDS: FLOMAX PO SCH (22:09)
[2018-09-23] MEDS: PERICOLACE PO SCH (22:10)
[2018-09-24] MEDS: MAXIPIME 1 GM in NS 50 ML IV SCH ×2 (03:17→16:19)
[2018-09-24] MEDS: CARAFATE LIQUID PO SCH ×5 (03:18→20:46)
[2018-09-24] MEDS: HUMALOG SUBQ SCH ×4 (06:20→20:46)
[2018-09-24] MEDS: PRILOSEC PO SCH ×2 (06:30→20:45)
[2018-09-24 06:37] LABS: HEMATOCRIT 23.5 % (42.0-52.0); HEMOGLOBIN 7.6 g/dL (14.0-18.0); MCH 30.3 PG (27-31); MCHC 32.3 g/dL (33-37); MCV 93.6 FL (81-99); RBC 2.51 XMIL (4.7-6.1); RDW 13.8 % (11.5-14.5); WBC 11.47 X1000 (4.8-10.8)
[2018-09-24 07:06] LABS: ALBUMIN 2.6 g/dL (3.5-5.0); CALCIUM 8.3 mg/dL (8.8-10.2); CREATININE 3.2 mg/dL (0.7-1.2); POTASSIUM 3.8 mmol/L (3.5-5.1)
[2018-09-24] MEDS: COREG PO SCH ×2 (08:09→20:45)
[2018-09-24] MEDS: VITAMIN B-12 SL SCH (08:09)
[2018-09-24] MEDS: FOLIC ACID PO SCH (08:09)
[2018-09-24] MEDS: CALTRATE 600 PO SCH (08:09)
[2018-09-24] MEDS: ASPIRIN EC PO SCH (08:09)
[2018-09-24] MEDS: BASAGLAR SUBQ SCH (08:09)
[2018-09-24] MEDS: FLOMAX PO SCH ×2 (08:10→20:46)
--- NOTE | 2018-09-24 15:05 | PROGRESS NOTE ---
DATE: 09/24/2018 SUBJECTIVE: The patient is resting comfortably in bed. No acute events noted overnight. OBJECTIVE: Vital Signs: Temperature 98.5 degrees, blood pressure 148/50, heart rate 63, respirations 18, O2 saturation is 97% on room air. Intake 600, output 2.6 L. General: This is a chronically ill-appearing, elderly male lying in bed, in no acute distress. Heart: S1, S2 normal. Regular rate and rhythm. Lungs: Clear to auscultation bilaterally. No wheezing. No rales. No rhonchi. Abdomen: Positive bowel sounds. Soft, nontender, nondistended. Extremities: No edema. No cyanosis. Neurologic: The patient is alert and oriented x4. Labs: White blood cell count 11, hemoglobin 7.6, hematocrit 23, platelets 401,000. Sodium 140, potassium 3.8, chloride 108, CO2 18, BUN 43, creatinine 3.2, glucose 133, albumin 2.6. ASSESSMENT AND PLAN: 1. Urinary tract infection secondary to Pseudomonas. Continue with antibiotic therapy. 2. Urinary retention. The patient's Griffiths catheter will be removed tomorrow to perform a voiding trial. Continue on Flomax. Further management as per Dr. Velazquez. 3. Acute kidney injury on chronic kidney disease. Management as per the consumer credit counselor. 4. Diabetes mellitus type 2. Continue on glargine and sliding scale insulin. 5. Hypertension. Stable. 6. Vitamin B12 deficiency. Continue with replacement. 7. Gastrointestinal bleed secondary to a duodenal ulcer with visible vessels, status post treatment. Stable. Continue on omeprazole. 8. Anemia. Low but stable. 9. Disposition. Hopefully, the patient can be discharged home tomorrow after the voiding trial. cc: Xiomy Swartz MD [facility]
--- NOTE | 2018-09-24 16:17 | NEPHROLOGY PROGRESS NOTE ---
DATE: 09/24/2018 TIME SEEN: 0840 SUBJECTIVE: Mr. Cuevas is resting quietly in bed. Head of the bed is elevated. He states that he is feeling well today. He has no complaints. OBJECTIVE: His most recent vital signs: Temperature 99.2 degrees, blood pressure 155/50, heart rate 72, respirations 18, he is on room air, last recorded saturation 100%. Intake and output: He has had 600 in, 2650 out to Griffiths catheter. DIAGNOSTIC STUDIES: Sodium 140, potassium 3.8, chloride 108, CO2 of 18, BUN 43, creatinine 3.2, glucose 133, his anion gap is 14, calcium is 8.3, phosphorus 3, albumin 2.6. Previous hemoglobin 7.4. Urinalysis has grown Pseudomonas aeruginosa. Sensitivity is currently pending. PHYSICAL EXAMINATION: General: This is an 78-year-old white male, resting quietly in bed. He appears in no acute distress. His skin is warm and dry. HEENT: Normocephalic, atraumatic. Conjunctivae pale pink. He has LIVAN. Mucous membranes are dry. Neck is supple. Trachea midline. No JVD. Cardiovascular: Regular rate and rhythm. He has an S4 present. His lungs are clear to auscultation bilateral with equal excursion. He remains on O2 per CPAP. His abdomen is large, round, soft, nontender. Positive bowel sounds. Genitourinary: Not inspected. Patient has adequate urine output documented per Griffiths catheter. Extremities: Have trace edema. No clubbing or cyanosis. Neurological: Alert and oriented x3. ASSESSMENT AND PLAN: 1. Acute kidney injury. Patient's BUN and creatinine have plateaued. His creatinine remains stable at 3.2 from 3.1. BUN is actually down to 43. Adequate urine output documented. No indications for intervention. We will continue to monitor. 2. Electrolytes, acid-base balance. These are acceptable. 3. Anemia. This is low, but stable. 4. Leukocytosis. The patient has a positive urinary tract infection. Remains on Zosyn, renally dosed. Followed by primary care I would to thank you for allowing us to follow with this patient. Dictated by ROBERT Chou for Tristan Singer MD Face to face encounter, data reviewed, discussed with Mirna Monsivais on 4/5/19. I agree with the above assessment and plan of care. cc: ROBERT Chou MD [facility]
[2018-09-24] MEDS: PERICOLACE PO SCH (20:45)
[2018-09-25] MEDS: CARAFATE LIQUID PO SCH ×4 (02:45→21:30)
[2018-09-25] MEDS: MAXIPIME 1 GM in NS 50 ML IV SCH ×2 (03:59→17:46)
[2018-09-25] MEDS: PRILOSEC PO SCH ×2 (06:22→21:30)
[2018-09-25] MEDS: HUMALOG SUBQ SCH ×4 (06:23→21:30)
[2018-09-25 06:44] LABS: HEMATOCRIT 22.4 % (42.0-52.0); HEMOGLOBIN 7.3 g/dL (14.0-18.0); MCHC 32.6 g/dL (33-37); MCV 92.2 FL (81-99); MPV 10.8 FL (7.4-10.4); RBC 2.43 XMIL (4.7-6.1); RDW 13.6 % (11.5-14.5); WBC 9.62 X1000 (4.8-10.8)
[2018-09-25 07:23] LABS: ALBUMIN 2.5 g/dL (3.5-5.0); CALCIUM 8.1 mg/dL (8.8-10.2); CREATININE 2.7 mg/dL (0.7-1.2); PHOSPHORUS 2.6 mg/dL (2.7-4.5); POTASSIUM 3.6 mmol/L (3.5-5.1)
[2018-09-25] MEDS: VITAMIN B-12 SL SCH (08:16)
[2018-09-25] MEDS: BASAGLAR SUBQ SCH (08:16)
[2018-09-25] MEDS: CALTRATE 600 PO SCH (08:16)
[2018-09-25] MEDS: ASPIRIN EC PO SCH (08:16)
[2018-09-25] MEDS: ROCALTROL PO SCH (08:16)
[2018-09-25] MEDS: FLOMAX PO SCH ×2 (08:16→21:30)
[2018-09-25] MEDS: COREG PO SCH ×2 (08:16→21:30)
[2018-09-25] MEDS: FOLIC ACID PO SCH (08:16)
[2018-09-25] MEDS ORDERED: NORVASC PO ONE (11:15)
[2018-09-25] MEDS: ICAR-C PO SCH ×2 (13:13→21:30)
[2018-09-25] MEDS ORDERED: NS 500 ML IV SCH (13:15)
--- NOTE | 2018-09-25 14:27 | PROGRESS NOTE ---
DATE: 09/25/2018 SUBJECTIVE: The patient states that he feels pretty good today. He has already had a bowel movement. His Griffiths catheter will be removed. OBJECTIVE: Vital Signs: Temperature 97.3 degrees, blood pressure 174/53, heart rate 64, respirations 20 and O2 saturations 100% on room air, intake 1.1 L, and output 2.9 L. General: This is a chronically ill-appearing elderly male lying in bed in no acute distress. HEENT: Head normocephalic and atraumatic. Heart: S1, S2 normal. Regular rate and rhythm. Lungs: Clear to auscultation bilaterally. Abdomen: Positive bowel sounds. Soft, nontender, and nondistended. Extremities: No edema. No cyanosis. Neurologic: The patient is alert and oriented x4. LABORATORY: White blood cell count 9.6, hemoglobin 7.3, hematocrit 22, and platelets 393,000. Sodium 137, potassium 3.6, chloride 108, CO2 20, BUN 42, creatinine 2.7, glucose 112, phosphorus 2.6, and albumin 2.5. ASSESSMENT AND PLAN: 1. Urinary tract infection secondary to Pseudomonas. The patient is currently on cefepime. His white blood cell count is back to normal. We will transition to Levaquin upon discharge as directed by Dr. Iqbal. 2. Urinary retention. The patient's Griffiths catheter will be removed today. We will monitor the patient's postvoid residual closely. Continue on Flomax twice a day as recommended by Dr. Velazquez. 3. Acute kidney injury on chronic kidney disease. Improved. 4. Anemia. The patient's hemoglobin and hematocrit are little bit lower today. We will transfuse 1 unit of packed red blood cells today. 5. Vitamin B12 deficiency. Continue with replacement. 6. Hypertension. The patient's blood pressures have been running high. We will restart the Norvasc. 7. Gastrointestinal bleed secondary to duodenal ulcer with visible vessel status post epinephrine injection and Endoclips. Continue on omeprazole and Carafate. The patient will follow up with Dr. Wasserman in 3 months as directed for repeat EGD. 8. Disposition. We will plan to send the patient home tomorrow if all goes well today. cc: Xiomy Swartz MD
--- NOTE | 2018-09-25 15:21 | INFECTIOUS DISEASE PROGRESS NO ---
DATE: 09/25/2018 PRESENT ILLNESS: Mr. Cuevas has a Pseudomonas urinary tract infection which is due to urinary retention. There is also an acute kidney injury. MEDICATIONS: He is receiving cefepime 1 g IV every 12 hours as a renally modified dose. PHYSICAL EXAMINATION: Vital Signs: Temperature is 98.2 degrees, pulse rate 60, respiratory rate 16, blood pressure 180/58, O2 saturations 98% on room air. General: This is an elderly, acutely ill-appearing gentleman. He is lying in the bed in no acute distress. HEENT: Atraumatic, normocephalic. Oral mucous membranes are pink and moist. Conjunctivae are pale. Neck: Supple. Trachea is midline. Cardiovascular: Heart rate is regular, 100% paced on the monitor. Abdomen: Soft, round, nontender. Bowel sounds are active. Respiratory: Lung sounds are clear to auscultation, diminished in the bases. Neurologic: He is awake, alert, oriented. Able to move all extremities in the bed without difficulty. LABORATORY AND X-RAY: Today his white count is 9.62, hemoglobin 7.3, platelet count 393,000. Creatinine is 2.7. Estimated GFR is 23. His urine is growing Pseudomonas aeruginosa, which is garcia susceptible. No imaging reports today. ASSESSMENT AND PLAN: Mr. Cuevas has a Pseudomonas urinary tract infection with a high postvoid residual. For now, he is receiving renally-dosed cefepime. The plan is for the patient to be discharged home, and we recommend that he go home on Levaquin 250mg by mouth, which he will need for a total of 2 weeks. He is being followed by Dr. Velazquez regarding his urinary retention, and will follow-up with him. These plans have been discussed with and recommended by Dr. Iqbal. COMORBIDITIES: Comorbidities for Mr. Cuevas include he is elderly, with insulin-dependent diabetes mellitus, presence of a pacemaker, and acute kidney injury on chronic kidney disease. Dictated by ROBERT Shah for Osorio qIbal MD This chart was documented by, ROBERT Shah and accurately reflects the services performed, treatment plan and medical decisions as attested by the providers signature Osorio Iqbal MD. cc: Osorio Iqbal MD [facility]
--- NOTE | 2018-09-25 16:43 | NEPHROLOGY PROGRESS NOTE ---
DATE: 09/25/2018 SUBJECTIVE: He states he is being discharged home. His Griffiths catheter was removed, and he has not voided yet. Otherwise, he is eating well. No shortness of breath. OBJECTIVE: Vital Signs: Blood pressure 174/53, heart rate 64, respirations 20, afebrile. General: No acute distress. Skin is warm and dry. Conjunctivae are pink. Neck veins are not distended. Heart is regular. No gallops. Lungs are equal. No crackles. Extremities have trace edema. No clubbing or cyanosis. IMPRESSION: 1. Acute kidney injury. Creatinine is improving, 2.7 today. His baseline creatinine is likely around 2. We will arrange for outpatient followup including labs early next week. He needs to void before he leaves the hospital today. 2. He does have a modest metabolic acidosis, but does not meet criteria for treatment. 3. Hemoglobin 7.3 today. His white count is normalized. We will follow this as an outpatient as well. cc: Tristan Singer MD
--- NOTE | 2018-09-25 17:17 | GASTROENTEROLOGY PROGRESS NOTE ---
DATE: 09/25/2018 SUBJECTIVE: Patient is awake and alert. His is at the bedside. He states he had a bowel movement today that was normal in color. There was no dark stool or blood in the stool. His hemoglobin and hematocrit have dropped slightly today. OBJECTIVE: Vital Signs: Temperature 97.3 degrees, pulse 64, respirations 20, blood pressure 174/53. General: Currently patient is awake and alert, in no acute distress. LABORATORY: Hematology: WBC 9.62, hemoglobin 7.3, hematocrit 22.4, MCV 92.2, platelets 393,000. Chemistry: Sodium 137, potassium 3.6, chloride 108, CO2 of 20, BUN 42, creatinine 2.7, glucose 112. ASSESSMENT AND PLAN: 1. Recent gastrointestinal bleeding with esophagogastroduodenoscopy (EGD) findings of duodenal ulcers and visible vessel treated along with gastritis. Recommended to continue PPI twice daily for 1 month and then decrease to daily. Recommend repeat EGD in 3 to 4 months to confirm healing of ulcers. Recommend he follow back with us in the office in approximately 3 to 4 weeks after discharge. Recommend to add iron supplements twice daily. 2. Urinary tract infection. He has been on antibiotics. He has also had some urinary retention and was followed with Dr. Velazquez . He had Griffiths catheter placed and that has been removed today. Further plans per Dr. Velazquez. 3. Acute versus chronic kidney disease, improving. Following with Nephrology. PLAN: Continue to follow during hospital course. Monitor for any further signs of bleeding. Continue PPI. Start iron supplements twice daily. Repeat EGD in 3 to 4 months. Follow back in our office after discharge. I have discussed this case with Dr. Wasserman. Dictated by ROBERT Ordonez for Óscar Wasserman MD cc: ROBERT Swanson MD
--- NOTE | 2018-09-25 17:32 | PROGRESS NOTE ---
DATE: 09/25/2018 SUBJECTIVE: Mr. Cuevas denies any complaints overnight. He is anxious to have his Griffiths catheter removed. OBJECTIVE: Vital Signs: Temperature 98.2 degrees, P 60, BP 180/58. His urine output was recorded in the amount of 1400 mL. General: No acute distress. Abdomen: Nontender, nondistended. Genitourinary: Without changes. ASSESSMENT AND PLAN: An 78-year-old male who has had benign prostatic hypertrophy and went into urinary retention. Continue Flomax twice a day for now. We will have his Griffiths catheter removed, and he is able to void with acceptable postvoid residual. He can be discharged to follow up with me in a week. If he is not able to void adequately or has elevated postvoid residuals, Griffiths catheter can be reinserted, and he can follow up with me in middle of next week for a voiding trial while continuing Flomax b.i.d. Please call if questions. cc: Brent Velazquez MD
[2018-09-25] MEDS: PERICOLACE PO SCH (21:30)
[2018-09-26] MEDS: CARAFATE LIQUID PO SCH ×3 (01:15→14:37)
[2018-09-26] MEDS: MAXIPIME 1 GM in NS 50 ML IV SCH (05:17)
[2018-09-26] MEDS: PRILOSEC PO SCH ×2 (05:17→06:39)
[2018-09-26] MEDS: HUMALOG SUBQ SCH ×2 (06:39→11:53)
[2018-09-26 07:32] LABS: HEMATOCRIT 26.6 % (42.0-52.0); MCH 29.6 PG (27-31); MCHC 33.8 g/dL (33-37); MCV 87.5 FL (81-99); MPV 10.7 FL (7.4-10.4); RBC 3.04 XMIL (4.7-6.1); RDW 13.6 % (11.5-14.5); WBC 11.99 X1000 (4.8-10.8)
[2018-09-26 08:12] LABS: ALBUMIN 2.7 g/dL (3.5-5.0); CALCIUM 8.3 mg/dL (8.8-10.2); CREATININE 2.5 mg/dL (0.7-1.2)
[2018-09-26] MEDS ORDERED: NORVASC PO SCH (09:00)
[2018-09-26] MEDS: ASPIRIN EC PO SCH (09:21)
[2018-09-26] MEDS: FLOMAX PO SCH (09:21)
[2018-09-26] MEDS: CALTRATE 600 PO SCH (09:21)
[2018-09-26] MEDS: FOLIC ACID PO SCH (09:21)
[2018-09-26] MEDS: COREG PO SCH (09:21)
[2018-09-26] MEDS: ICAR-C PO SCH (09:21)
[2018-09-26] MEDS: VITAMIN B-12 SL SCH (09:21)
[2018-09-26] MEDS: BASAGLAR SUBQ SCH (09:22)
[2018-09-26 12:14] VITALS: BP 143/58
--- NOTE | 2018-09-26 16:17 | NEPHROLOGY PROGRESS NOTE ---
DATE: 09/26/2018 SUBJECTIVE: He has Griffiths again. No fever. No new pain or complaints. No nausea or vomiting. Discussed directly with the patient, the and with Dr. Swartz. Creatinine is down again today and she is planning discharge. We will arrange for outpatient followup in our office. Electrolytes and acid-base are acceptable. cc: Tristan Singer MD
--- NOTE | 2018-10-19 08:11 | DISCHARGE SUMMARY ---
ADMISSION DATE: 09/14/2018 DISCHARGE DATE: 09/26/2018 FINAL DISCHARGE DIAGNOSES: 1. Gastrointestinal bleed secondary to duodenal ulcer with visible vessel status post epinephrine injection and Endoclip. 2. Urinary tract infection secondary to Pseudomonas. 3. Urinary retention. 4. Acute kidney injury on chronic kidney disease. 5. Anemia of acute blood loss. 6. Vitamin B12 deficiency. 7. Hypertension. 8. Diabetes mellitus type 2 CONSULTATIONS: 1. ID consultation with Dr. Osorio Iqbal. 2. Nephrology consultation with Dr. Singer. 3. Urology consultation with Dr. Velazquez. PROCEDURES: EGD performed on 09/15/2018, which revealed duodenal ulcers with visible vessels that were treated. Multiple duodenal ulcers. Gastritis. IMAGIN. A CT of the abdomen and pelvis performed on 09/14, which revealed a hyperdense right renal lesion which may represent a hemorrhagic cyst. Diverticulosis. Contracted gallbladder. 2. Portable chest x-ray performed on 09/15/2018 that revealed no acute disease. 3. Renal ultrasound performed on 09/22/2018 that revealed bilateral renal cysts. Significant post void residual volume indicating urinary retention. HOSPITAL COURSE: Mr. Cuevas is an 78-year-old male with a history of multiple medical problems who presented to the ER with a chief complaint of abdominal pain and melena. On admission, the patient was noted to have a hemoglobin of 9.7. The following day when the blood count was checked, the patient's hemoglobin had dropped to 7. The patient was admitted to the hospitalist service. GI was consulted. The patient was taken for endoscopy that same day at which time multiple duodenal ulcers were seen as well as an ulcer with a visible vessel. The patient was treated with epinephrine injection and Endoclips. There was also gastritis seen. On admission, the patient was noted to have a urinary tract infection so empiric antibiotic therapy was started. Ultimately, the urine culture grew out Pseudomonas. The patient was also noted to be in acute on chronic kidney disease and so Nephrology was consulted. The patient was noted to have difficulty with urinating so a renal ultrasound was done that revealed a significant post void residual as well indicating urinary retention. Urology was consulted and a Griffiths catheter was placed. The patient did require a blood transfusion during this hospitalization in reference due to his GI bleeding prior to endoscopy. An attempt was made to remove the patient's Griffiths to see if he could urinate. However, the patient was unable to urinate, so it was recommended by the urologist that the Griffiths catheter be reinserted, and that the patient be discharged home with a catheter plus Flomax. The patient continued to improve clinically, and had no further GI bleeding. His hemoglobin and hematocrit remained stable. His renal function stabilized, and the patient was ultimately cleared for discharge home. DISCHARGE MEDICATIONS: 1. Carafate 1 g p.o. every 6 hours. 2. Levaquin 250 mg p.o. daily. 3. Prilosec 40 mg p.o. twice a day. 4. Vitamin B12 2500 mcg oral daily. 5. Flomax 0.4 mg oral twice a day. 6. Icar C 1 tab oral twice a day. 7. Aspirin 81 mg oral daily. 8. Coreg 12.5 mg oral twice daily. 9. Lispro use as directed. 10. Norvasc 10 mg p.o. daily. 11. Aldactone 12.5 mg oral daily. 12. Folic Acid 0.4 mg oral daily. 13. Uloric 40 mg p.o. daily. 14. Calcium Carbonate 600 mg p.o. daily. 15. Calcitriol 0.25 mcg oral every other day. DISCHARGE DIET: 1800 ADA diet. ACTIVITY: As tolerated. FOLLOWUP INSTRUCTIONS: The patient has been advised to follow up with all the subspecialists as scheduled by their clinics. The patient will need to follow up with Dr. Sheldon Tristan in 1 to 2 weeks. cc: MD Sheldon Mckeon MD MTDD
== END 2018-09-26 14:43 | disposition home or self-care (01) | DRG 377 ==
LOC: P.ED 18:54 → INTOOBSV 18:55 → OBSVTOIN 18:55 → SUATTDRO 18:55 → P.MEDSURG 18:55 → ICU 09-15 02:38 → 4N 09-16 14:24
PROVIDERS: ATTEND Internal Medicine
PROC: EN.HEAT (2018-09-15 13:50)
CPT/HCPCS: 36430; 51702; 71010; 71020; 71045; 71046; 74176; 76770; 80048; 80053; 80069; 81001; 82270; 82550; 82570; 82607; 82728; 82746; 82948; 83036; 83540; 83550; 83735; 83935; 84132; 84145; 84156; 84300; 84484; 85014; 85018; 85025; 85027; 85610; 85651; 86140; 86850; 86900; 86901; 86920; 87040; 87077; 87088; 87186; 88305; 88312; 88313; 93005; 93010; 94640; 94760; 94761; 96361; 96365; 96375; 97110; 97116; 97162; 97166; 97530; 99285; A9270; C9113; J0131; J0171; J0692; J1815; J2543; J2550; J3010; J3475; J7030; P9016; S0164; XXXXX